=== PATIENT | male | born 1955 | race Caucasian/White ===

== ENCOUNTER 2024-04-01 14:26 | Outpatient (CLI) | payer MEDICARE, SELFPAY ==
--- NOTE | ~2024-04-01 | MR_ITS ---
EXAMINATION: MR shoulder RT wo con DATE: 04/01/2024 15:14 INDICATION: Glenohumeral arthritis TECHNIQUE: Magnetic resonance imaging (MRI) of the right shoulder was performed without intravenous c ontrast. Sequences included axial PD-weighted FS FSE, coronal oblique PD-weighted FS FSE, coronal obl ique T2-weighted FS FSE, sagittal PD-weighted FS FSE, and sagittal T1-weighted SE. COMPARISON: None. FINDINGS: Coracoacromial arch: The acromion undersurface is curved in morphology (type II). Moderate sized anterior subacromial spur at the insertion of the otherwise normal coracoacromial ligament. There are some foci of susceptibil ity artifact along the lateral margin of the acromion which could be related to either exposure for r eported rotator cuff repair or prior acromioplasty. Mild acromioclavicular osteoarthritis. Rotator cuff: There are foci of susceptibility artifact along the superior and middle facets of the greater tuberos ity consistent with prior rotator cuff repair. There is marked attenuation of the distal 3.5 cm the s upraspinatus and infraspinatus tendons with suggestion of retracted articular sided tendons at the tr ansition point midway between the level of the apex of the humeral head and the rim of the glenoid. T here does appear to be a small likely intact bursal side of the infraspinatus tendon. The supraspinat us tear appears to be full-thickness or largely full-thickness. There is mild subscapularis tendinopa thy which also appears to gradually attenuate distally consistent with a less severe partial thicknes s tear most likely along the patellar side of the tendon. The distal tendon passes between the narrow ed space between the posterior tip of the coracoid process and the superomedial margin of the lesser tuberosity with the osseous separation at this location measuring 3 mm. The teres minor tendon is nor mal. There is mild atrophy of the supraspinatus and infraspinatus tendons and mild to moderate fatty atrophy of the subscapularis tendon. Biceps tendon, glenoid labrum and glenohumeral cartilage: The long head biceps tendon is not visualized, likely torn and retracted below the level of the inter tubercular groove. No discrete labral tear identified although the anterior and inferior glenoid appe ars relatively diminutive suggesting chronic degeneration and the posterior labrum. Partially replace d by marginal osteophytes arising from the glenoid. No clearly defined labral tear identified. With n onuniform partial-thickness cartilage loss along the humeral head most prominent inferomedially. Appe ars to involve greater than 50% the cartilage thickness but without degenerative subchondral changes. Mild partial-thickness cartilage loss along the glenoid with cephalad predominance also without dege nerative subchondral changes. Fluid: Physiologic amount of fluid in the glenohumeral joint and biceps tendon sheath. No loose osteochondr al bodies. No abnormal fluid signal in the subacromial/subdeltoid bursa to suggest bursitis. Bones: There is some cephalad subluxation of the humeral head with respect to the glenoid with narrowing of the subacromial space with <1 mm separation between the cortex along the inferior margin of the acrom ion and the cartilage surfaces at the apex of the humeral head. IMPRESSION: 1. Postoperative change of prior rotator cuff tear likely of the supraspinatus and infraspinatus tend ons with recurrent severe articular sided tear of the infraspinatus tendon and complete full-thicknes s or largely full-thickness tear of the distal supraspinatus tendon. 2. Mild tendinopathy and mild partial thickness articular sided tear of the subscapularis tendon. 3. Mild to moderate glenohumeral osteoarthritis with mild cephalad subluxation of the humeral head wi th respect to the glenoid and acromion resulting from a recurrent rotator cuff tear. 4. Likely chronic degeneration of the glenoid labr
== END 2024-04-01 14:27 ==
LOC: GOSHIMG 14:27
PROVIDERS: PCP Internal Medicine Infectious Disease; Visit Provider Physician Assistant
DX: M19.011 Primary osteoarthritis, right shoulder (principal); M25.311 Other instability, right shoulder
CPT/HCPCS: 73221

== ENCOUNTER 2025-01-27 07:30 | Outpatient (CLI) | payer MEDICARE, SELFPAY ==
--- NOTE | ~2025-01-27 | PE_ITS ---
EXAMINATION: PET_PETPSMAST_PT DATE: 01/27/2025 09:44 INDICATION: Prostate cancer TECHNIQUE: 5.078 mCi of Illucix Ga-[id number]) was administered i.v. Low dose computed erika graphy (CT) images were acquired from the base of the brain to the base of the brain to the proximal thighs for attenuation correction and anatomic localization. Positron emission tomography (PET) image s were acquired in the same distribution beginning 82 minutes after injection. Images including fused PET/CT images were reconstructed in axial, coronal, and sagittal planes. Automated exposure control technique was employed. The dose-length product was 1340.30mGy-cm. COMPARISON: None FINDINGS: Head/neck: Typical pattern of symmetric physiologic increased activity in the lacrimal, parotid and submandibula r glands as well as along the mucosa of the nasal and oral cavities, pharynx and hypopharynx. 2.5 x 1 .6 cm nodule arising from the inferior left thyroid lobe extending into the superior mediastinum. No pathologically enlarged cervical lymphadenopathy or suspicious foci of increased uptake in the visual ized head or neck. Chest: Elevation of the left hemidiaphragm with adjacent left basilar atelectasis. Calcified right lower lob e nodule and calcified bilateral hilar lymph nodes consistent with old granulomatous disease. Heart s ize is normal. No pericardial or pleural effusion. No pathologically enlarged or PSMA avid thoracic l ymphadenopathy. Thoracic aorta is normal in caliber. Abdomen/pelvis/proximal thighs: Physiologic renal accumulation and excretion of activity in the kidneys, bladder and along portions o f ureters. 7 mm exophytic lesion at the lower pole the left kidney most likely a cyst but too small t o definitively characterize. Prostatomegaly measuring 5.5 x 5.2 cm. Approximately 2 cm region of prom inent increased PSMA uptake with maximal SUV of 15.5 at the right anterior inferior aspect of the pro state consistent with primary prostate cancer. Small bilateral fat-containing inguinal hernias with l ikely vasectomy clips along the bilateral spermatic cords at the base of the scrotum. Normal degree a nd slightly heterogenous pattern of increased uptake throughout the liver and spleen without radiolog ic correlate or dominant PSMA avid lesion. The gallbladder, pancreas and bilateral adrenal glands are normal. Moderate uptake scattered throughout the bowels with typical duodenal and proximal jejunal p redominance and without radiologic correlate, also likely physiologic. Normal appendix. No other abno rmal foci of increased uptake or pathologically enlarged lymphadenopathy in the abdomen, pelvis or pr oximal thighs. Musculoskeletal: Mild thoracolumbar levocurvature. Moderate to severe spondylosis in the cervical, thoracic and lumbar spine. No suspicious lytic, blastic or abnormally PSMA avid bone lesions. IMPRESSION: 1. Region of prominent increased activity at the right anterior inferior aspect of the enlarged prost ate consistent with primary prostate cancer. No lesion suspicious for metastatic disease. Reviewed, dictated and finalized at location A. IMPRESSION: 1. Region of prominent increased activity at the right anterior inferior aspect of the enlarged prostate consistent with primary prostate cancer. No lesion miller spicious for metastatic disease.
--- OUTSIDE RECORDS SUMMARY | 2025-01-27 07:34 | XMS_ITS | Encounter Summary ---
Author Organization [facility] Healthcare Address [address] [place] [address] Care Team Providers Care Foundation Stage Teacher Name Role Phone Moses Griffith MD Primary Care Provider [phone] Mona Fregoso DO Unavailable [phone] Reason for Referral * MRI/CAT/PET Scan (Routine) - Closed Specialty Diagnoses / Procedures Referred By Contac t Referred To Contact Radiology Diagnoses Elevated PSA Procedures MRI [place] [address] [place] [id number] Phone: tel: fax: [address] [phone] Referral ID Status Reason Start Date Expiration Date Visits Re quested Visits Authorized [id number] Closed 11/14/2024 05/13/2025 1 1 ER [employer] Encounter Details Date Type Department Care Team (Late st Contact Info) Description 10/30/2024 Community Orders [facility] [place] [address] [place] [id number] Elevated PSA (Primary Dx) Social History Tobacco Use Types Packs/Day Years Used Date Smoking Tobacco: Former Smokeless Tobacco: Never Alcohol Use Standard Drinks/Week Comments Not Currently 0 (1 standard drink = 0.6 oz pur e alcohol) [facility] Utilities Answer Date Recorded In the past 12 months has th e electric, gas, oil, or water company threatened to shut off services in your home? No 08/01/2024 Social Connection and Isolat ion Panel [NHANES] Answer Date Recorded In a typical week, how many times do you talk on the phone with family, friends, or neighbors? More than three times a week 08/01/2024 How often do you get togethe r with friends or relatives? Three times a week 08/01/2024 How often do you attend chur ch or mormonism services? Never 08/01/2024 Do you belong to any clubs o r organizations such as holiness groups, unions, fraternal or athletic groups, or school groups? Yes 08/01/2024 How often do you attend meet ings of the clubs or organizations you belong to? More than 4 times per year 08/01/2024 Are you , , di vorced, , never , or living with a partner? 08/01/2024 Overall Financial Resource Strain (CARDIA) Answe r Date Recorded How hard is it for you to pa y for the very basics like food, housing, medical care, and heating? Not hard at all 08/01/2024 PHQ-2 Answer Date Recorded PHQ-2 Total Score (If total score is 3 or more points, staff should administer the PHQ-9) 0 09/09/2024 Hunger Vital Sign Answer Date Recorded Within the past 12 months, y ou worried that your food would run out before you got the money to buy more. Never true 08/01/20 24 Within the past 12 months, t he food you bought just didn't last and you didn't have money to get more. Never true 08/01/2024 PRAPARE - Transportation Answer Date Re corded In the past 12 months, has l ack of transportation kept you from medical appointments or from getting medications? No 07/14 In the past 12 months, has l ack of transportation kept you from meetings, work, or from getting things needed for daily living? No 08/01/2024 Housing Stability Vital Sign Answer Tong e Recorded In the last 12 months, was t here a time when you were not able to pay the mortgage or rent on time? No 08/01/2024 In the past 12 months, how m any times have you moved where you were living? 0 08/01/2024 At any time in the past 12 m [facility], were you homeless or living in a penitentiary (including now)? No 08/01/2024 Personal Safety Answer Date Recorded Have you ever been in or are you currently in a harmful physical or emotional relationship or is someone making you feel afraid or unsafe? Denies 07/30/2024 Sex and Gender Information Value Date Recorded Sex Assigned at Not on file Legal Sex Male 1:06 AM [employer] Gender Identity Not on file Sexual Orientation Not on file documented as of this encounter Plan of Treatment Not on file documented as of this encounter Results * MRI PELVIS PROSTATE W WO CONTRAST (12/02/2024 1:20 PM [employer]) Anatomical Region Laterality Modality Body N/A Magnetic Resonan ce 12/02/2024 2:09 PM [employer] Impressions 12/02/2024 2:52 PM [employer] 1. Lesion in the right anterior transition zone at the apex is at high suspicion for malignancy with an overall PI-RADS score of 5. There is irregularity with a bulge along the anterior prostate at this site, potentially indicating extraprostatic extension (EPE grade of 2). 2. Additional 6 mm PI-RADS 3 lesion in the right lateral transition zone, as described above. Dictated by: Stepan Augustin MD The radiology attending physician has personally reviewed this study, and had reviewed and/or edited this written report and agrees with it. Electronically signed by: Miguel Angel Ricardo M.D. Narrative 12/02/2024 2:52 PM [employer] EXAMINATION: MAGNETIC RESONANCE IMAGING OF THE PELVIS WITHOUT AND WITH CONTRAST HISTORY: Elevated PSA of 7.5 TECHNIQUE: MR imaging of the prostate gland was performed with a torso phased array coil prior to and following administration of intravenous gadolinium. Protocol: Prostate 3T Contrast: gadoterate 20 mL COMPARISON: None available FINDINGS: Prostate volume: 68 cc The prostate transition zone is enlarged with benign prostatic hyperplasia. The prostate was assessed using the PI-RADS version 2.1 scoring system. The following lesions are of at least intermediate suspicion (PI-RADS 3 or greater): Lesion 1: Side: right Location: anterior Zone: transition zone Craniocaudal: apex Aiken images: series 9, image 21 Size: 1.9 mL; largest axial dimensions 2.2 x 1.5 cm Extraprostatic extension: - tumor contact length with prostate margin: 1.6 - margin bulge/irregularity: yes - rectoprostatic angle obliteration: no - neurovascular bundle asymmetry: no - gross extraprostatic extension: no - overall EPE grade: 2 ( both curvilinear contact length > 15 mm AND margin irregularity/bulge) T2WI score: 4 DWI score: 5 DCE: negative Overall PI-RADS v2.1 assessment: 5 Lesion 2: Side: right Location: lateral Zone: transition zone Craniocaudal: mid gland Aiken images: series 9, image 15 Size: 0.1 mL; largest axial dimensions 0.6 x 0.6 cm Extraprostatic extension: - tumor contact length with prostate margin: 0 - margin bulge/irregularity: no - rectoprostatic angle obliteration: no - neurovascular bundle asymmetry: no - gross extraprostatic extension: no - overall EPE grade: 0 (no suspicion for pathologic EPE) T2WI score: 2 DWI score: 4 DCE: negative Overall PI-RADS v2.1 assessment: 3 Staging Information: No enlarged lymph nodes are identified. No suspicious osseous lesions are identified. Other findings: The imaged bladder, bowel/rectum appear normal. Procedure Note Miguel Angel Ricardo MD - 12/02/2024 EXAMINATION: MAGNETIC RESONANCE IMAGING OF THE PELVIS WITHOUT AND WITH CONTRAST HISTORY: Elevated PSA of 7.5 TECHNIQUE: MR imaging of the prostate gland was performed with a torso phased array coil prior to and following administration of intravenous gadolinium. Protocol: Prostate 3T Contrast: gadoterate 20 mL COMPARISON: None available FINDINGS: Prostate volume: 68 cc The prostate transition zone is enlarged with benign prostatic hyperplasia. The prostate was assessed using the PI-RADS version 2.1 scoring system. The following lesions are of at least intermediate suspicion (PI-RADS 3 or greater): Lesion 1: Side: right Location: anterior Zone: transition zone Craniocaudal: apex Aiken images: series 9, image 21 Size: 1.9 mL; largest axial dimensions 2.2 x 1.5 cm Extraprostatic extension: - tumor contact length with prostate margin: 1.6 - margin bulge/irregularity: yes - rectoprostatic angle obliteration: no - neurovascular bundle asymmetry: no - gross extraprostatic extension: no - overall EPE grade: 2 ( both curvilinear contact length > 15 mm AND margin irregularity/bulge) T2WI score: 4 DWI score: 5 DCE: negative Overall PI-RADS v2.1 assessment: 5 Lesion 2: Side: right Location: lateral Zone: transition zone Craniocaudal: mid gland Aiken images: series 9, image 15 Size: 0.1 mL; largest axial dimensions 0.6 x 0.6 cm Extraprostatic extension: - tumor contact length with prostate margin: 0 - margin bulge/irregularity: no - rectoprostatic angle obliteration: no - neurovascular bundle asymmetry: no - gross extraprostatic extension: no - overall EPE grade: 0 (no suspicion for pathologic EPE) T2WI score: 2 DWI score: 4 DCE: negative Overall PI-RADS v2.1 assessment: 3 Staging Information: No enlarged lymph nodes are identified. No suspicious osseous lesions are identified. Other findings: The imaged bladder, bowel/rectum appear normal. IMPRESSION: 1. Lesion in the right anterior transition zone at the apex is at high suspicion for malignancy with an overall PI-RADS score of 5. There is irregularity with a bulge along the anterior prostate at this site, potentially indicating extraprostatic extension (EPE grade of 2). 2. Additional 6 mm PI-RADS 3 lesion in the right lateral transition zone, as described above. Dictated by: Stepan Augustin MD The radiology attending physician has personally reviewed this study, and had reviewed and/or edited this written report and agrees with it. Electronically signed by: Miguel Angel Ricardo M.D. [facility] Danie Ramirez MD IM MRI PROCEDURES Final Resul t documented in this encounter Visit Diagnoses Diagnosis Elevated PSA- Primary Elevated prostate specific antigen (PSA) Elevated PSA Elevated prostate specific antigen (PSA) documented in this encounter Care Teams Foundation Stage Teacher Relationship Specialty Start Date End Date Moses Griffith MD [address] [place] [address] PCP - General 08/02/09 Mona Fregoso DO [address] [place] [address] [address] Consulting Physician Otolaryngology 08/16/20 documented as of this encounter
--- OUTSIDE RECORDS SUMMARY | 2025-01-27 07:34 | XMS_ITS | Referral Summary ---
Author Organization [facility] Address [address] [place] [address] Care Team Providers Care Garage Mechanic Name Role Phone Gladis Moses Brown MD Primary Care Provider [phone] Mona Fregoso DO Unavailable [phone] Encounters Date Type Department Care Team Description 01/14/2025 10:05 AM RAISED PRINTER - 01/14/2025 11:05 AM RAISED PRINTER Surgery [facility] Operating Room [address] [place] [address] Fei Ramirez MD URONAV GUIDED PROSTATE TRANSRECTAL ULTRASOUND FUSION GUIDED PROSTATE BIOPSY 01/14/2025 10:56 AM RAISED PRINTER Anesthesia Event [facility] Operating Room [address] [place] [address] Lauren Topete MD [place], Emenike Adolphus Jr., MD 01/14/2025 8:25 AM RAISED PRINTER - 01/14/2025 1:25 PM RAISED PRINTER Hospital Encounter [facility] Operating Room [address] [place] [address] Fei Ramirez MD Elevated PSA Discharge Disposition: Discharge to home or self care 12/03/2024 Plan of Care Documentation [facility] [place] [address] 12/03/2024 1:00 PM RAISED PRINTER Therapy [facility] [place] [address] Meiser, Deandre Edward, PT Right knee pain, unspecified chronicity 12/02/2024 11:30 AM RAISED PRINTER - 12/02/2024 11:59 PM RAISED PRINTER Hospital Encounter [facility] [address] [place], [place] [id number] Elevated PSA Discharge Disposition: Discharge to home or self care 11/20/2024 7:51 AM RAISED PRINTER - 11/20/2024 11:59 PM RAISED PRINTER Hospital Encounter [facility] [address] [place] [address] [address] [place] [address] Discharge Disposition: Discharge to home or self care 11/20/2024 11:00 AM RAISED PRINTER Office Visit [facility] [address] [place] [address] [address] [address] Juan Pablo Grijalva MD Right knee pain, unspecified chronicity (Primary Dx); Knee stiffness, right; Hip abductor tendinitis, right 11/07/2024 7:41 AM RAISED PRINTER - 11/07/2024 11:59 PM RAISED PRINTER Hospital Encounter [facility] [address] [place] [address] [address] [place] [address] Discharge Disposition: Discharge to home or self care 11/07/2024 2:45 PM RAISED PRINTER Office Visit [facility] [address] [place] [address] [address] [place] [address] Glenny Johnson PA Trochanteric bursitis of right hip (Primary Dx) 10/30/2024 Community Orders [facility] EpicCare Link Fei Ramirez MD Elevated PSA (Primary Dx) from Last 3 Months Allergies Active Allergy Reactions Criticality Noted Date Comments Opioids - Morphine Analogues Hives Medium 10/11/2016 Other Rash Medium 10/09/2023 Narcotics Oxycodone Rash Medium 07/08/2021 Penicillins Other (See comments),Unknown Low 06/16/2021 as child Medications flecainide (TAMBOCOR) 50 mg tablet Take 1 tablet (50 mg total) by mouth 2 (two) times a day 60 tablet 4 025 Active metoprolol XL (TOPROL-XL) 50 mg extended release tablet Take 1 tablet (50 mg total) by mouth daily 30 tablet 11 4 025 Active dilTIAZem XR (CARDIZEM CD,DILACOR XR) 240 mg 24 hr capsule Take 1 capsule (240 mg total) by mouth daily 90 capsule 3 4 025 Active betamethasone valerate (VALISONE) 0.1 % cream Apply topically 2 (two) times a day as needed for irritation or rash 45 g 4 4 Active apixaban (ELIQUIS) 5 mg tabletIndication s:atrial fibrillation Take 1 tablet (5 mg total) by mouth 2 (two) times a day 14 tablet 4 Active vibegron (Gemtesa) 75 mg tablet Take 75 mg by mouth every morning Active valACYclovir (VALTREX) 1 gram tablet Take 1 tablet (1,000 mg total) by mouth daily Active eizei-0-agw-epa- dpa-fish oil 1,050-1,200 mg capsule Take 2 capsules by mouth every morning Active cholecalciferol, vitD3,/vit K2 (VITAMIN D3-VITAMIN K2 ORAL) Take 1 tablet by mouth daily Vitamin D3 125mcg Vitamin K1 50mcg Active ciprofloxacin (CIPRO) 500 mg tablet Take 1 tablet (500 mg total) by mouth 2 (two) times a day 6 tablet 5 Active oxyBUTYnin XL (DITROPAN XL) 15 mg 24 hr tablet Take 1 tablet (15 mg total) by mouth daily 90 tablet 4 025 Discontin ued(Thera py completed ) Active Problems Problem Noted Date Diagnosed Date Trochanteric bursitis of right hip 11/07/2024 Routine physical examination 09/09/2024 Assessment & Plan (09/10/2024 5:56 PM CDT): Immunizations were reviewed Meds were reviewed today A fib probable paroxysmal discussed the importanace of restarting doac also discussed coumadin pt has an apptto see dr moore for possible ablatrion rate controlled in witrh beta johnathon/ rhythm control with flecainide . Elevated psa / oab rectal exam is nl / will fax the psa results to dr sly lagunas continue oxybutynin for his Oab Colonscopy is uptodate Eye exam and dental uptodate Essential HTN goal bp is 130/80 or under Atrial fibrillation with RVR 07/30/2024 PHN (postherpetic neuralgia) 03/03/2024 Assessment & Plan (03/03/2024 9:00 AM CDT): HE IS DOING OK DISCUSSED THERE ARE MEDS AVAILABLE BUT HIS SYMPTOMS ARE NOT BAD ENOUGH DISCUSSED SHINGRIX VACCINE IN SIX MONTH OAB (overactive bladder) 03/03/2024 Assessment & Plan (03/03/2024 9:01 AM CDT): HE IS DOING WITHOUT ANY SYMPTOMS HE IS NOT ON ANY MEDS AT THIS TIME Elevated PSA 03/03/2024 Assessment & Plan (03/03/2024 9:02 AM CDT): HE IS RELATIVELY ASYPTOMATIC WILL GO AHEAD AND FAX PSA TO HIS UROLOGIST Herpes zoster without complication 09/28/2023 Assessment & Plan (09/28/2023 11:14 AM RAISED PRINTER): Patient presents with facial rash consistent with shingles, located on R upper brow and forehead area with swelling to right eye. Patient reports he has seen the health education teacher and shingles is not in eye. Notes that he goes back to eye doctor on 10/18. Plan: Depo-medrol 80mg IM in office today Valtrex 1 gram tid x 10 days Prednisone 20mg daily for 5 days Allergic drug rash due to narcotic 09/28/2023 Assessment & Plan (09/28/2023 11:33 AM RAISED PRINTER): Patient notes a generalized itchy rash. Says this has been present a couple days after recent surgery September 07. He was given Fentanyl which he says he is allergic to, along with other narcotics. Legs were examined during appt today, PE as documented above. Depo-medrol 80mg IM in office today and script for triamcinolone sent to pharmacy. History of colon polyps 03/02/2023 SDH (subdural hematoma) 06/16/2021 KATT (obstructive sleep apnea) 06/13/2021 Assessment & Plan (06/13/2021 9:59 AM CDT): Referral to Sleep Medicine Neck pain 06/13/2021 Assessment & Plan (06/13/2021 10:01 AM CDT): Start Cefdinir 300 mg twice daily with a meal Ibuprofen 400 mg with tylenol 500 mg three times daily with a meal Warm compresses to the Neck Continue sinus Rinses twice daily, definitely use sinus rinse after hunt water exposure Continue Flonase twice daily for the next three weeks Dizziness and giddiness 06/13/2021 Assessment & Plan (06/13/2021 10:01 AM CDT): Start Cefdinir 300 mg twice daily with a meal Ibuprofen 400 mg with tylenol 500 mg three times daily with a meal Warm compresses to the Neck Continue sinus Rinses twice daily, definitely use sinus rinse after hunt water exposure Continue Flonase twice daily for the next three weeks Acute recurrent maxillary sinusitis 04/21/2021 Assessment & Plan (06/13/2021 10:01 AM CDT): Start Cefdinir 300 mg twice daily with a meal Ibuprofen 400 mg with tylenol 500 mg three times daily with a meal Warm compresses to the Neck Continue sinus Rinses twice daily, definitely use sinus rinse after hunt water exposure Continue Flonase twice daily for the next three weeks Assessment & Plan (04/21/2021 4:23 PM CDT): Cefdinir twice daily with a meal for 21 days Nasal saline spray (Simply saline, [place] Remedies, [place], [place]) 2 second sprays or 2 squeezes into each nostril while looking down over the sink, do not need to sniff in or Sinus rinse daily Flonase 2 sprays into each nostril while looking down over the sink, do not sniff in or blow nose after use for at least 30 minutes daily Follow up in 4 weeks If sinus infection resolved with refer to sleep medicine for Sleep study Allergic rhinitis 11/01/2020 Assessment & Plan (08/02/2021 9:11 AM CDT): Continue Cefdinir for 14 more days Start Cetirizine 10 mg daily without the Decongestant Continue Sinus Rinse Increase Flonase to twice daily Assessment & Plan (11/01/2020 4:12 PM RAISED PRINTER): Sinus Rinse followed by Flonase 2 sprays into each nostril while looking down over the sink, do not sniff in or blow nose after use for at least 30 minutes daily Blood allergy testing - call with results Call for follow up if nasal congestion increases Nasal polyposis 07/29/2020 Overview (07/29/2020): Added automatically from request for surgery [id number] Assessment & Plan (10/11/2020 4:17 PM RAISED PRINTER): Cefdinir with a meal Medrol dose pack Pepcid while on steroids Sinus rinse followed by Flonase twice daily 08/26/2020 PROCEDURE PERFORMED: Endoscopic bilateral Total Ethmoidectomies Endoscopic bilateral Maxillary Anstrostomies Endoscopic bilateral Frontal Sinusotomies with tissue removal Endoscopic bilateral Sphenoidotomies with tissue removal Endoscopic bilateral Mini Propel implant placement in the frontal recesses Stealth Image guidance utilized Assessment & Plan (09/02/2020 3:43 PM CDT): Sinus Rinse twice daily Finish Antibiotics Follow up as scheduled Chronic sinusitis 07/29/2020 Overview (07/29/2020): Added automatically from request for surgery [id number] Chronic maxillary sinusitis 05/13/2020 Assessment & Plan (12/20/2022 10:15 AM RAISED PRINTER): Sinus Rinse Flonase 1 spray and Astelin (azelastine) 1 sprays into each nostril while looking down over the sink, do not sniff in or blow nose after use for at least 30 minutes twice daily Cefdinir twice daily with a meal for 10 days, based on culture results will either continue current antibiotic or change Follow up in 6 weeks for recheck Assessment & Plan (08/02/2021 9:11 AM CDT): Continue Cefdinir for 14 more days Start Cetirizine 10 mg daily without the Decongestant Continue Sinus Rinse Increase Flonase to twice daily Assessment & Plan (11/01/2020 4:12 PM RAISED PRINTER): 08/26/2020 PROCEDURE PERFORMED: Endoscopic bilateral Total Ethmoidectomies Endoscopic bilateral Maxillary Anstrostomies Endoscopic bilateral Frontal Sinusotomies with tissue removal Endoscopic bilateral Sphenoidotomies with tissue removal Endoscopic bilateral Mini Propel implant placement in the frontal recesses Stealth Image guidance utilized Sinus Rinse followed by Flonase 2 sprays into each nostril while looking down over the sink, do not sniff in or blow nose after use for at least 30 minutes daily Blood allergy testing - call with results Call for follow up if nasal congestion increases Assessment & Plan (10/11/2020 4:17 PM RAISED PRINTER): Cefdinir with a meal Medrol dose pack Pepcid while on steroids Sinus rinse followed by Flonase twice daily Assessment & Plan (09/10/2020 1:41 PM CDT): Continue sinus rinses twice daily Restart Flonase 2 sprays into each nostril while looking down over the sink, do not sniff in or blow nose after use for at least 30 minutes twice daily May blow nose very gently Assessment & Plan (07/26/2020 1:35 PM CDT): Endoscopic bilateral Frontal sinusotomy with tissue removal Endoscopic bilateral nasal polypectomies Endoscopic bilateral Total Ethmoidectomy Endoscopic bilateral Maxillary Antrostomy Endoscopic bilateral Sphenoidotomy with tissue removal Stealth Image guidance Possible Propel placement Continue Sinus Rinse and Flonase Take Cefdinir with a meal Assessment & Plan (06/25/2020 11:50 AM CDT): Neti-pot twice daily Flonase 2 sprays into each nostril while looking down over the sink, do not sniff in or blow nose after use for at least 30 minutes daily Follow up in 3-[address] Sinus right before follow up Doxycycline twice daily, call if refill needed Assessment & Plan (05/13/2020 3:34 PM CDT): Cefdinir twice daily for 21 days Probiotic at a different meal - 4 hour window in between Neti-pot and Flonase 2 sprays into each nostril while looking down over the sink, do not sniff in or blow nose after use for at least 30 minutes twice daily Follow up if no improvement in one month Dysfunction of both eustachian tubes 05/13/2020 Assessment & Plan (05/13/2020 3:51 PM CDT): Referral for discussion regarding Eustachian Tube dilation Routine physical examination 12/03/2017 Rib pain on left side 10/19/2017 BPH (benign prostatic hyperplasia) 05/23/2017 Hemoptysis 12/23/2014 Overview (02/16/2017): Hemoptysis Insomnia 03/28/2014 Overview (02/15/2017): Insomnia Hypertension 03/28/2014 Overview (02/15/2017): Hypertension Hypertriglyceridemia 03/28/2014 Overview (02/16/2017): Hypertriglyceridemia Obstructive sleep apnea syndrome 03/28/2014 Overview (02/16/2017): KATT (obstructive sleep apnea) Hyperlipidemia 03/28/2014 Overview (02/16/2017): Hyperlipidemia Atrial fibrillation 03/28/2014 Overview (02/16/2017): Atrial fibrillation Adiposity 03/28/2014 Overview (02/16/2017): Obesity Immunizations Immunization Administration Dates Next Due DTP 07/22/2007 Influenza, Quadrivalent, Spl it, Intramuscular 08/10/2016 Influenza, Split 07/28/2013,07/22/2012 Influenza, Unspecified 09/09/2024(Deferr ed: Patient Refused),09/03/2023(Deferred: Patient Refused),08/12/2016 [place] ([employer]) SARS-CoV-2 Vaccination 01/17/2021 Tdap 04/16/2024 Social History Tobacco Use Types Packs/Day Years Used Date Smoking Tobacco: Former Cigarettes Smokeless Tobacco: Never Tobacco Cessation:Counseling Given: Not Answered Alcohol Use Standard Drinks/Week Comments Not Currently 0 (1 standard drink = 0.6 oz pur e alcohol) [facility] Utilities Answer Date Recorded In the past [...] often do you attend chur ch or christianity services? Never 08/01/2024 Do you belong to any clubs o r organizations such as oriental orthodox groups, unions, fraternal or athletic groups, or school groups? Yes 08/01/2024 How often do you attend meet ings of the clubs or organizations you belong to? More than 4 times per year 08/01/2024 Are you , , di vorced, , never , or living with a partner? 08/01/2024 AUDIT-C Answer Date Recorded Q1: How often do you have a drink containing alc ohol? 2-4 times a month 01/14/2025 Q2: How many drinks containi ng alcohol do you have on a typical day when you are drinking? 1 or 2 01/14/2025 Q3: How often do you have si x or more drinks on one occasion? Never 01/14/2025 Overall Financial Resource Strain (CARDIA) Answe r [...] any time in the past 12 m [facility], were you homeless or living in a care home (including now)? No 08/01/2024 Personal Safety Answer Date Recorded Have you ever been in or are you currently in a harmful physical or emotional relationship or is someone making you feel afraid or unsafe? Denies 01/14/2025 Sex and Gender Information Value Date Recorded Sex Assigned at Not on file Legal Sex Male 1:06 AM RAISED PRINTER Gender Identity Not on file Sexual Orientation Not on file Last Filed Vital Signs Vital Sign Reading Time Taken Comments Blood Pressure 126/83 01/14/2025 12:45 PM RAISED PRINTER Pulse 48 01/14/2025 12:45 PM RAISED PRINTER Temperature 36.1 C (96.9 F) 01/14/2025 12:45 PM RAISED PRINTER Respiratory Rate 15 01/14/2025 12:4 5 PM RAISED PRINTER Oxygen Saturation 100% 01/14/2025 12: 45 PM RAISED PRINTER Inhaled Oxygen Concentration - - Weight 117.9 kg (259 lb 14.8 oz) 01/14/2025 8:43 AM RAISED PRINTER Height 180.3 cm (5' 11 ) 01/14/2025 8:43 AM RAISED PRINTER Body Mass Index 36.25 01/14/2025 8:43 AM RAISED PRINTER Plan of Treatment Not on file Medical Devices Implanted Type Area Patient Flow Coordinator Device Identifier Shelf Expiration Date Model / Serial / Lot Intersect Ent [id number] Propel 4mm 16mm Steroid Release Zip Tie 370 Mcg Mini Implant - [id number] Implanted:Qty: 1 on 08/26/2020 by Mona Fregoso DO at [facility] Left: Sinus Intersect Ent [id number] 04/01/2021 [id number] / / [id number] Intersect Ent [id number] Propel 4mm 16mm Steroid Release Zip Tie 370 Mcg Mini Implant - [id number] Implanted:Qty: 1 on 08/26/2020 by Mona Fregoso DO at [facility] Right: Sinus Intersect Ent [id number] 04/01/2021 [id number] / / [id number] Procedures Procedure Name Priority Date/Time Associated Diagnosis Comments SURGICAL PATHOLOGY Routine 01/14/2025 1: 30 PM RAISED PRINTER Elevated PSA URONAV GUIDED PROSTATE BIOPSY 01/14/2025 10:56 AM RAISED PRINTER Elevated PSA Special Needs [facility] CONF# [id number]< MRI PELVIS PROSTATE W WO CONTRAST Schedule Routine, Read Routine (OP Routine) 12/02/2024 1:20 PM RAISED PRINTER Elevated PSA LIPID PANEL Routine 12/02/2024 8:00 AM RAISED PRINTER Routine physical examination Hypertension, unspecified type PSA SCREEN Routine 12/02/2024 8:00 AM RAISED PRINTER Prostate cancer screening COMPREHENSIVE METABOLIC PANEL Routine 12/02/2024 8:00 AM RAISED PRINTER Routine physical examination Hypertension, unspecified type CBC WITH AUTO DIFFERENTIAL Routine 12/02/2024 8:00 AM RAISED PRINTER Routine physical examination Hypertension, unspecified type XR KNEE RIGHT 3 VIEWS Schedule Routine, Read Routine (OP Routine) 11/20/2024 10:32 AM RAISED PRINTER Right knee pain, unspecified chronicity DC ARTHROCENTESIS ASPIR&/INJ MAJOR JT/BURSA W/O US Routine 11/07/2024 2:45 PM RAISED PRINTER Trochanteric bursitis of right hip XR HIP RIGHT 2 OR 3 VIEWS Schedule Routine, Read Routine (OP Routine) 11/07/2024 2:41 PM RAISED PRINTER Trochanteric bursitis of right hip COLONOSCOPY 05/02/2023 8:30 AM CDT from Last 3 Months or Most Recently Relevant to Health Maintenance Results * Surgical pathology (01/14/2025 1:30 PM RAISED PRINTER) Tissue (Prostate, Needle Biopsy) 01/14/2025 10:48 AM RAISED PRINTER Tissue (Prostate, Needle Biopsy) 01/14/2025 10:48 AM RAISED PRINTER Tissue (Prostate, Needle Biopsy) 01/14/2025 10:48 AM RAISED PRINTER Tissue (Prostate, Needle Biopsy) 01/14/2025 10:48 AM RAISED PRINTER Tissue (Prostate, Needle Biopsy) 01/14/2025 10:48 AM RAISED PRINTER Tissue (Prostate, Needle Biopsy) 01/14/2025 10:48 AM RAISED PRINTER Tissue (Prostate, Needle Biopsy) 01/14/2025 10:48 AM RAISED PRINTER Tissue (Prostate, Needle Biopsy) 01/14/2025 10:48 AM RAISED PRINTER Tissue (Prostate, Needle Biopsy) 01/14/2025 10:48 AM RAISED PRINTER Tissue (Prostate, Needle Biopsy) 01/14/2025 10:48 AM RAISED PRINTER Tissue (Prostate, Needle Biopsy) 01/14/2025 10:48 AM RAISED PRINTER Tissue (Prostate, Needle Biopsy) 01/14/2025 10:48 AM RAISED PRINTER Tissue (Prostate, Needle Biopsy) 01/14/2025 10:51 AM RAISED PRINTER Tissue (Prostate, Needle Biopsy) 01/14/2025 10:51 AM RAISED PRINTER Narrative PATHOLOGY [facility] ([facility]) - 01/16/2025 1:16 PM RAISED PRINTER EPIC results best viewed via link to PDF [facility] Department of Pathology [address] [place] [id number] Note to Patients: This report may contain a detailed description of human tissue sent by a health care provider to the laboratory for pathologic evaluation. The content of this report is essential for diagnosis and may provide important critical findings. This information may be unfamiliar to patients to review without a medical professional present. It is advised that the patient review this report in the presence of a health care provider who can answer questions and explain the details. Final Report Patient Name: YAW FELIX. Address: [address] [place] [address] [place] [address] Gender: M : 1955 (Age: 69) Service: Surgery Location: [facility] Hospital #: [id number] Patient Type: [facility] Taken: 01/14/2025 Received: 01/14/2025 Accessioned: 01/14/2025 Reported: 01/16/2025 Physician(s):Fei Caraballo MD Diagnosis: M. 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 Prostate, right lateral base, needle biopsy- Benign prostate tissue B. Prostate, right medial base, needle biopsy- No tissue present in jar for evaluation C. Prostate, right lateral mid, needle biopsy- Benign prostate tissue D. Prostate, right medial mid, needle biopsy- Benign prostate tissue E. Prostate, right lateral apex, needle biopsy- Benign prostate tissue F. Prostate, right medial apex, needle biopsy- Benign prostate tissue G. Prostate, left lateral base, needle biopsy- Benign prostate tissue H. Prostate, left medial base, needle biopsy- Benign prostate tissue I. Prostate, left lateral mid, needle biopsy- Benign prostate tissue J. Prostate, left medial mid, needle biopsy- Benign prostate tissue K. Prostate, left lateral apex, needle biopsy- Benign prostate tissue L. Prostate, left medial apex, needle biopsy- Benign prostate tissue N. Prostate, ANGEL #2- Benign prostate tissue Steph Pinto M.D. Report Electronically Reviewed and Signed Out By Steph Pinto M.D. 01/16/2025 13:16:00 Specimen(s) Received: A: Right lateral Base B: Right medial Base C: Right lateral Mid D: Right medial Mid E: Right lateral Fitzpatrick F: Right medial Fitzpatrick G: Left lateral Base H: Left medial Base I: Left lateral Mid J: Left medial Mid K: Left lateral Fitzpatrick L: Left medial Fitzpatrick M: ANGEL #1 N: ANGEL #2 Microscopic Description: Microscopic examination corroborates the diagnosis. PIN4 IHC cocktail with appropriate control also reviewed was performed on all blocks to facilitate this diagnosis. Clinical History: Elevated PSA [R97.20] Uronav guided prostate transrectal ultrasound fusion guided prostate biopsy Gross Description: The specimen is submitted in fourteen containers labeled YAW FELIX . A. The first container is labeled right lateral base . It is 1 core of truong tissue measuring 6 mm. Entirely in A. B. The second container is labeled right medial base . It is a formalin filled jar containing a Telfa pad however no tissue is seen grossly. C. The third container is labeled right lateral mid . It is 1 core of truong tissue measuring 1.5 cm. Entirely in C. D. The fourth container is labeled right medial mid . It is 1 core of truong tissue measuring 1.6 cm. Entirely in D. E. The fifth container is labeled right lateral apex . It is 1 core of truong tissue measuring 1.5 cm. Entirely in E. F. The sixth container is labeled right medial apex . It is 1 core of truong tissue measuring 1.2 cm. Entirely in F. G. The seventh container is labeled left lateral base . It is 1 core of truong tissue measuring 1.7 cm. Entirely in G. H. The eighth container is labeled left medial base . It is 1 core of truong tissue measuring 1.6 cm. Entirely in H. I. The ninth container is labeled left lateral mid . It is 1 core of truong tissue measuring 1.4 cm. Entirely in I. J. The tenth container is labeled left medial mid . It is 1 core of truong tissue measuring 1.9 cm. Entirely in J. K. The eleventh container is labeled left lateral apex . It is 1 core of truong tissue measuring 1.3 cm. Entirely in K. L. The twelfth container is labeled left medial apex . It is 2 cores of truong tissue between 0.3 and 1.0 cm. Entirely in L. M. The thirteenth container is labeled RO I #1 . It is 4 cores of truong tissue between 0.6 and 1.2 cm. Entirely in M. N. The fourteenth container is labeled RO #2 . It is 4 cores of truong tissue between 0.7 and 1.0 cm. Entirely in N. T.A. Joy Cerrato., P.A./Steph Pinto M.D. REPORT IMAGES AND SCANNED DOCUMENTS, IF INCLUDED, ONLY VIEWABLE IN PDF VERSION OF REPORT The performance characteristics of some immunohistochemical stains, fluorescence in-situ hybridization tests and immunophenotyping by flow cytometry cited in this report (if any) were determined by the Surgical Pathology Department at [facility] as part of an ongoing quality systems manager program and in compliance with federally mandated regulations drawn from the Clinical Laboratory Improvement Act of 1988 (CLIA '88). Some of these tests rely on the use of analyte specific reagents and are subject to specific labeling requirements by the US Food and Drug Administration. Such diagnostic tests may only be performed in a facility that is certified by the Department of Health and Human Services as a high complexity laboratory under CLIA '88. The FDA has determined that such clearance or approval is not necessary. This test is used for clinical purposes. It should not be regarded as investigational or for research. Nevertheless, federal rules concerning the medical use of analyte specific reagents require that the following disclaimer be attached to the report: This test was developed and its performance characteristics determined by the Surgical Pathology Department [facility]. It has not been cleared or approved by the U. S. Food and Drug Administration. Note for decalcified specimens: This assay has not been validated on decalcified tissues. Results should be interpreted with caution given the possibility of false negativity on decalcified specimens Fei Caraballo MD LAB PATHOLOGY ORDERABLES Final Result PATHOLOGY ON LICENSE OF [facility] ([address] [address] * MRI PELVIS PROSTATE W WO CONTRAST (12/02/2024 1:20 PM RAISED PRINTER) Anatomical Region Laterality Modality Body N/A Magnetic Resonan ce 12/02/2024 2:09 PM RAISED PRINTER Impressions 12/02/2024 2:52 PM RAISED PRINTER 1. Lesion in the right anterior transition [...] Angel Ricardo M.D. Narrative 12/02/2024 2:52 PM RAISED PRINTER EXAMINATION: MAGNETIC RESONANCE IMAGING OF THE PELVIS [...] Electronically signed by: Miguel Angel Ricardo M.D. us Fei Caraballo MD IMG MRI PROCEDURES Final Resul t * (ABNORMAL) PSA screen (12/02/2024 8:00 AM RAISED PRINTER) PSA 6.37(H) < OR = 4.00 ng/mL [facility] Comment: The total PSA value from this assay system is standardized against the WHO standard. The test result will be approximately 20% lower when compared to the equimolar-standardized total PSA ([place]). Comparison of serial PSA results should be interpreted with this fact in mind. This test was performed using the Siemens chemiluminescent method. Values obtained from different assay methods cannot be used interchangeably. PSA levels, regardless of value, should not be interpreted as absolute evidence of the presence or absence of disease. Blood 12/02/2024 8:00 AM RAISED PRINTER 12/02/2024 8:00 AM RAISED PRINTER Narrative [facility] - 12/03/2024 3:15 AM RAISED PRINTER FASTING:YES FASTING: YES Moses Griffith MD LAB BLOOD ORDERABLES Final Result [facility] [address] [place] [address] * (ABNORMAL) CBC with auto differential (12/02/2024 8:00 AM RAISED PRINTER) Pathologist [facility] [place] WBC 6.7 3.8 - 10.8 Thousand/u L [facility] RBC, POC 5.84(H) 4.20 - 5.80 Million/uL [facility] Hgb 17.1 13.2 - 17.1 g/dL [facility] Hct 50.4(H) 38.5 - 50.0 % [facility] MCV 86.3 80.0 - 100.0 fL [facility] MCH 29.3 27.0 - 33.0 pg [facility] MCHC 33.9 32.0 - 36.0 g/dL [facility] Comment: For adults, a slight decrease in the calculated MCHC value (in the range of 30 to 32 g/dL) is most likely not clinically significant; however, it should be interpreted with caution in correlation with other red cell parameters and the patient's clinical condition. Rdw 13.2 11.0 - 15.0 % [facility] Platelets 223 140 - 400 Thousand/u L [facility] MPV 9.2 7.5 - 12.5 fL [facility] Neutrophils, abs 3,839 1,500 - 7,800 cells/uL [facility] Lymphocytes, abs 2,050 850 - 3,900 cells/uL [facility] Monocyte abs 616 200 - 950 cells/uL [facility] Eosinophils, abs 141 15 - 500 cells/uL [facility] Basophils, abs 54 0 - 200 cells/uL [facility] Neutrophils 57.3 % [facility] Lymphocyte pct 30.6 % [facility] Monocytes 9.2 % [facility] Eosinophils 2.1 % [facility] Basophils 0.8 % [facility] Blood 12/02/2024 8:00 AM RAISED PRINTER 12/02/2024 8:00 AM RAISED PRINTER Narrative [facility] - 12/03/2024 3:15 AM RAISED PRINTER FASTING:YES FASTING: YES Moses Griffith MD LAB BLOOD ORDERABLES Final Result [facility] [address] [place] [address] * (ABNORMAL) Lipid panel (12/02/2024 8:00 AM RAISED PRINTER) [facility] Cholesterol 247(H) <200 mg/dL [facility] HDL 44 > OR = 40 mg/dL [facility] Triglycerides 218(H) <150 mg/dL [facility] Comment: If a non-fasting specimen was collected, consider repeat triglyceride testing on a fasting specimen if clinically indicated. Thomas et al. J. of Clin. Lipidol. 2015;9:129-169. LDL 164(H) mg/dL (calc) [facility] Comment: Reference range: <100 Desirable range <100 mg/dL for primary prevention; <70 mg/dL for patients with CHD or diabetic patients with > or = 2 CHD risk factors. LDL-C is now calculated using the Lonnie calculation, which is a validated novel method providing better accuracy than the Friedewald equation in the estimation of LDL-C. Cristian ALSTON et al. NITISH. 2013;310(19): 1595-3550 (http://education.Close.io/faq/RCI071) Chol/HDL ratio 5.6(H) <5.0 (calc) [facility] Non-HDL, (LDL+VLDL) 203(H) <130 mg/dL (calc) [facility] Comment: For patients with diabetes plus 1 major ASCVD risk factor, treating to a non-HDL-C goal of <100 mg/dL (LDL-C of <70 mg/dL) is considered a therapeutic option. Blood 12/02/2024 8:00 AM RAISED PRINTER 12/02/2024 8:00 AM RAISED PRINTER Narrative [facility] - 12/03/2024 3:15 AM RAISED PRINTER FASTING:YES FASTING: YES us Moses Griffith MD LAB BLOOD ORDERABLES Final Result [facility] [address] [facility] [place] [address] * Comprehensive metabolic panel (12/02/2024 8:00 AM RAISED PRINTER) [facility] Glucose 90 65 - 99 mg/dL [facility] Comment: Fasting reference interval BUN 18 7 - 25 mg/dL [facility] Creatinine 1.01 0.70 - 1.35 mg/dL [facility] eGFR 82 > OR = 60 mL/min/1.7 3m2 [facility] BUN/creat ratio SEE NOTE: 6 (calc) [facility] Comment: Not Reported: BUN and Creatinine are within reference range. Sodium 138 135 - 146 mmol/L [facility] Potassium, pl 4.1 3.5 - 5.3 mmol/L [facility] Chloride 104 98 - 110 mmol/L [facility] CO2 27 20 - 32 mmol/L [facility] Calcium 9.2 8.6 - 10.3 mg/dL [facility] Protein, sr 6.9 6.1 - 8.1 g/dL [facility] Albumin 4.6 3.6 - 5.1 g/dL [facility] GLOBULIN 2.3 1.9 - 3.7 g/dL (calc) [facility] Alb/glob ratio 2.0 1.0 - 2.5 (calc) [facility] Bilirubin, total 1.2 0.2 - 1.2 mg/dL [facility] Alk phos 68 35 - 144 U/L [facility] AST 15 10 - 35 U/L [facility] ALT (SGPT) 12 9 - 46 U/L [facility] Blood 12/02/2024 8:00 AM RAISED PRINTER 12/02/2024 8:00 AM RAISED PRINTER Narrative [facility] - 12/03/2024 3:15 AM RAISED PRINTER FASTING:YES FASTING: YES us Moses Griffith MD LAB BLOOD ORDERABLES Final Result [facility] [address] [place] [address] * XR Knee Right 3 Views (11/20/2024 10:32 AM RAISED PRINTER) Anatomical Region Laterality Modality Lower Extremities, Knee Right Digital Radiography Narrative 12/05/2024 10:26 AM RAISED PRINTER Three component, Press-Fit, cruciate retaining, total knee arthroplasty in appropriate position with no gross abnormalities and no evidence of loosening. us Juan Pablo Grijalva MD IMG XR PROCEDURES Final Result * DC ARTHROCENTESIS ASPIR&/INJ MAJOR JT/BURSA W/O US (11/07/2024 2:45 PM RAISED PRINTER) Narrative Juan Pablo Grijalva MD - 11/07/2024 2:45 PM RAISED PRINTER Glenny Johnson PA 11/07/2024 3:18 PM Greater trochanteric bursa injection Performed by: Glenny Johnson PA Authorized by: Glenny Johnson PA Greater Trochanteric Bursa Injection: Consent Given by: Patient Site marked: the procedure site was marked Timeout: prior to procedure the correct patient, procedure, and site was verified Verbal consent obtained?: Yes Prior to the start of the procedure, verbal verification by the procedure participant(s) confirmed (as applicable): corect patient idenity; correct site/side marked and visible; agreement on the procedure to be done; correct patient positioning; an accurate procedure consent form, relevant images and results correctly labeled and displayed; any safety precautions based on clinical history and/or medication use have been addressed.: Supporting Documentation: Indications: Pain and therapeutic Procedure Details: Site: Right Greater Trochanteric Bursa Prep: patient was prepped and draped in usual sterile fashion Patient position: Sidelying Needle Size: 22 G Ultrasound guidance: No Approach: Lateral Medications: 80 mg methylPREDNISolone acetate 80 mg/mL; 4 mL lidocaine 20 mg/mL (2 %) Patient tolerance: Patient tolerated the procedure well with no immediate complications Glenny COFFEY IN CLINIC/BEDSIDE ORD ERABLES Final Result * XR Hip Right 2 or 3 Views (11/07/2024 2:41 PM RAISED PRINTER) Anatomical Region Laterality Modality Lower Extremities, Hip, Pelvis Right D igital Radiography Narrative 11/07/2024 3:07 PM RAISED PRINTER Radiographs taken of the right hip today reveal moderate degenerative changes with subchondral sclerosis, osteophyte formation, and diminished joint space. Glenny COFFEY IMG XR PROCEDURES Fin al Result * COLONOSCOPY (05/02/2023 8:30 AM CDT) Anatomical Region Laterality Modality Other Narrative Procedure Note Toy Hein MD - 05/02/2023 8:30 AM CDT [facility] Patient Name: Yaw Felix Procedure Date: 05/02/2023 8:30 AM Date of : 1955 Admit Type: Outpatient Age: 67 Gender: Male Attending MD: Toy Hein M.D. Room: ON LICENSE OF [facility] ENDOSCOPY ROOM 1 Note Status: Finalized Patient Profile: This is a 67 year old male. History of colonpolyps. No family history of colon cancer per Procedure: Colonoscopy Indications: High risk colon cancer surveillance: Personalhistory of colonic polyps, Last colonoscopy: July2017 Referring MD: Moses Griffith M.D. Providers: Toy Hein M.D. Impression: - One 16 mm polyp in the proximal ascending colon, removed with a cold snare. Resected andretrieved. - One 5 mm polyp in the descending colon, removedwith a cold snare. Resected and retrieved. - Mild diverticulosis in the sigmoid colon. - The rectum is normal. Recommendation: - Await pathology results. - Repeat colonoscopy in 3 years for screeningpurposes. Medicines: Monitored Anesthesia Care Complications: No immediate complications. Estimated Blood Loss: Estimated blood loss: none. Procedure: Pre-Anesthesia Assessment: - Prior to the procedure, a History and Physicalwas performed, and patient medications and allergieswere reviewed. The patient's tolerance of previous anesthesia was also reviewed. The risks andbenefits of the procedure and the sedation options and risks were discussed with the patient. All questions were answered, and informed consent was obtained. Prior Anticoagulants: The patient has taken noanticoagulant or antiplatelet agents. ASA Grade Assessment: III -A patient with severe systemic disease. Afterreviewing the risks and benefits, the patient was deemed in satisfactory condition to undergo the procedure. The benefits, risks and alternatives of theprocedure and sedation were discussed and informed consentwas obtained. All questions were answered. Please referto the signed informed consent document in the medical record. The bowel preparation used was Miralax via split dose instruction. The bowel preparation usedwas bisacodyl tablets via split dose instruction. The scope was passed under direct vision. The Pediatric Colonoscope PCF-H190L [id number] was introducedthrough the anus and advanced to the the cecum, identifiedby appendiceal orifice and ileocecal valve. Thequality of the bowel preparation was excellent. Bowel prepwas administered using a split dose. Findings: The perianal and digital rectal examinations were normal. The cecum appeared normal. A 16 mm polyp was found in the proximal ascending colon. The polypwas semi-pedunculated. The polyp was removed with a cold snare. Resection and retrieval were complete. The transverse colon appeared normal. A 5 mm polyp was found in the descending colon. The polyp wassessile. The polyp was removed with a cold snare. Resection and retrieval were complete. A few small-mouthed diverticula were found in the sigmoid colon. The rectum appeared normal. Electronically signed by Toy Hein M.D. Toy Hein M.D. 05/02/2023 9:28:54 AM Number of Addenda: 0 Note Initiated On: 05/02/2023 8:30 AM Procedure Code(s): --- Professional --- 31416, Colonoscopy, flexible; with removal of tumor(s), polyp(s), or other lesion(s) by snare technique Diagnosis Code(s): --- Professional --- Z86.010, Personal history of colonic polyps D12.2, Benign neoplasm of ascending colon D12.4, Benign neoplasm of descending colon K57.30, Diverticulosis of large intestine without perforation orabscess without bleeding CPT copyright 2020 [employer]. All rights reserved. The codes documented in this report are preliminary and upon steel erecting pusher reviewmay be revised to meet current compliance requirements. Recognized by the [employer] for promoting quality in endoscopy Toy Hein MD ENDOSCOPY PROCEDURES Final Result from Last 3 Months or Most Recently Relevant to Health Maintenance [place] [facility] [place] [facility] [employer] [facility] [address] [place] [address] Advance Directives For more information, please contact: [phone] * Full Code (Latest Code Status on File) Date Activated Date Inactivated Comments 07/30/2024 10:05 AM 08/02/2024 3:01 PM * Full Code Date Activated Date Inactivated Comments 05/02/2023 8:11 AM 05/02/2023 2:12 PM * Full Code Date Activated Date Inactivated Comments 05/02/2023 8:11 AM 05/02/2023 8:11 AM Care Teams Garage Mechanic Relationship Specialty Start Date End Date Moses Griffith MD [address] [place] [address] PCP - General 08/02/09 Mona Fregoso DO [address] [place] [address] Consulting Physician Otolaryngology 08/16/20
--- OUTSIDE RECORDS SUMMARY | 2025-01-27 07:34 | XMS_ITS | Clinical Summary ---
Author Organization [facility] Address [address] [place] [address] Care Team Providers Care Space Systems Operations Craftsman Name Role Phone Gladis, Moses Kevin RODAS Primary Care Provider [phone] Mona Fregoso DO Unavailable [phone] Allergies Active Allergy Reactions Criticality Noted Date [...] (1,000 mg total) by mouth daily Active uhsxz-2-ztu-epa- dpa-fish oil 1,050-1,200 mg capsule Take 2 [...] moore for possible ablatrion rate controlled in [facility] johnathon/ rhythm control with flecainide . [...] 09/28/2023 Assessment & Plan (09/28/2023 11:14 AM GRADES 7 AND 8 VISITING TEACHER): Patient presents with facial rash consistent with shingles, located on R upper brow and forehead area with swelling to right eye. Patient reports he has seen the pheresis nurse and shingles is not in eye. Notes that he goes back to eye doctor on 10/18. Plan: Depo-medrol 80mg IM in office today Valtrex 1 gram tid x 10 days Prednisone 20mg daily for 5 days Allergic drug rash due to narcotic 09/28/2023 Assessment & Plan (09/28/2023 11:33 AM GRADES 7 AND 8 VISITING TEACHER): Patient notes a generalized itchy rash. Says [...] Nasal saline spray (Simply saline, Little Remedies, [place], [place]) 2 second sprays or 2 squeezes into [...] daily Assessment & Plan (11/01/2020 4:12 PM GRADES 7 AND 8 VISITING TEACHER): Sinus Rinse followed by Flonase 2 sprays into each nostril while looking down over the sink, do not sniff in or blow nose after use for at least 30 minutes daily Blood allergy testing - call with results Call for follow up if nasal congestion increases Nasal polyposis 07/29/2020 Overview (07/29/2020): Added automatically from request for surgery [id number] Assessment & Plan (10/11/2020 4:17 PM GRADES 7 AND 8 VISITING TEACHER): Cefdinir with a meal Medrol dose pack [...] (07/29/2020): Added automatically from request for surgery [id number] Chronic maxillary sinusitis 05/13/2020 Assessment & Plan (12/20/2022 10:15 AM GRADES 7 AND 8 VISITING TEACHER): Sinus Rinse Flonase 1 spray and Astelin [...] daily Assessment & Plan (11/01/2020 4:12 PM GRADES 7 AND 8 VISITING TEACHER): 08/26/2020 PROCEDURE PERFORMED: Endoscopic bilateral Total Ethmoidectomies [...] increases Assessment & Plan (10/11/2020 4:17 PM GRADES 7 AND 8 VISITING TEACHER): Cefdinir with a meal Medrol dose pack [...] Atrial fibrillation Adiposity 03/28/2014 Overview (02/16/2017): Obesity Encounters Date Type Department Care Team Description 01/14/2025 10:56 AM GRADES 7 AND 8 VISITING TEACHER Anesthesia Event [facility] Operating Room [address] [place] [address] Lauren Topete MD Okafor, Emenike Adolphus Jr., MD 01/14/2025 10:05 AM GRADES 7 AND 8 VISITING TEACHER - 01/14/2025 11:05 AM GRADES 7 AND 8 VISITING TEACHER Surgery [facility] Operating Room [address] [place] [address] Fei Ramirez MD URONAV GUIDED PROSTATE TRANSRECTAL ULTRASOUND FUSION GUIDED PROSTATE BIOPSY 01/14/2025 8:25 AM GRADES 7 AND 8 VISITING TEACHER - 01/14/2025 1:25 PM GRADES 7 AND 8 VISITING TEACHER Hospital Encounter [facility] Operating Room [address] [place] [address] Fei Ramirez MD Elevated PSA Discharge Disposition: Discharge to home or self care 12/03/2024 1:00 PM GRADES 7 AND 8 VISITING TEACHER Therapy [facility] [place] [address] Deandre Scott, PT Right knee pain, unspecified chronicity 12/03/2024 Plan of Care Documentation [facility] [place] [address] 12/02/2024 11:30 AM GRADES 7 AND 8 VISITING TEACHER - 12/02/2024 11:59 PM GRADES 7 AND 8 VISITING TEACHER Hospital Encounter [facility] [address] [place] [address] Elevated PSA Discharge Disposition: Discharge to home or self care 11/20/2024 11:00 AM GRADES 7 AND 8 VISITING TEACHER Office Visit [facility] Medical [facility] Orthopedics and Sports Medicine [address] [place] [address] [address] [place] [address] Juan Pablo Grijalva MD Right knee pain, unspecified chronicity (Primary Dx); Knee stiffness, right; Hip abductor tendinitis, right 11/20/2024 7:51 AM GRADES 7 AND 8 VISITING TEACHER - 11/20/2024 11:59 PM GRADES 7 AND 8 VISITING TEACHER Hospital Encounter [facility] Orthopedics and Sports Medicine [address] [place] [address] [address] [place] [address] Discharge Disposition: Discharge to home or self care 11/07/2024 2:45 PM GRADES 7 AND 8 VISITING TEACHER Office Visit [facility] Orthopedics and Sports Medicine [address] [place] [address] [address] [place] [address] Glenny Johnson PA Trochanteric bursitis of right hip (Primary Dx) 11/07/2024 7:41 AM GRADES 7 AND 8 VISITING TEACHER - 11/07/2024 11:59 PM GRADES 7 AND 8 VISITING TEACHER Hospital Encounter [facility] Orthopedics and Sports Medicine [address] [place] [address] [address] [place] [address] Discharge Disposition: Discharge to home or self care 10/30/2024 Community Orders [facility] EpicCare Link Fei Ramirez MD Elevated PSA (Primary Dx) from Last 3 Months Immunizations Immunization Administration Dates Next Due DTP 07/22/2007 Influenza, Quadrivalent, Spl it, Intramuscular 08/10/2016 Influenza, Split 07/28/2013,07/22/2012 Influenza, Unspecified 09/09/2024(Deferr ed: Patient Refused),09/03/2023(Deferred: Patient Refused),08/12/2016 Florian (J&J) SARS-CoV-2 Vaccination 01/17/2021 Tdap 04/16/2024 Surgical History Surgery Date Site/Laterality Comments NASAL SEPTOPLASTY W/ TURBINOPLASTY Reduction of turbinates and septoplasty early to late ROTATOR CUFF REPAIR Bilateral TOTAL KNEE ARTHROPLASTY Bilateral JOINT REPLACEMENT COLONOSCOPY 07/13/2017 - 08/11/2017 CATARACT EXTRACTION Bilateral ABLATION 12/18/2024 cardiac CARDIAC CATHETERIZATION and conversion. no stents Medical History Medical History Date Comments Obesity Hypertension Hypercholesteremia Hiatal hernia Sleep apnea Arrhythmia afib OAB (overactive bladder) BPH (benign prostatic hyperplasia) Subdural hematoma (HCC) Herpes Family History Medical History Relation Name Comments Arthritis Other Cancer Other Hypertension Other Relation Name Status Comments Other Social History Tobacco Use Types Packs/Day Years Used Date Smoking Tobacco: Former Cigarettes Smokeless Tobacco: Never Tobacco Cessation:Counseling Given: Not Answered Alcohol Use Standard Drinks/Week Comments Not Currently 0 (1 standard drink = 0.6 oz pur e alcohol) [employer] Answer Date Recorded In the past 12 months has [employer], gas, oil, or water [employer]! threatened to shut off services in your [...] 08/01/2024 How often do you attend chur or roman catholic services? Never 08/01/2024 Do you belong to any clubs o r organizations such as baptism groups, unions, fraternal or athletic groups, or [...] any time in the past 12 m [facility], were you homeless or living in a alf (including now)? No 08/01/2024 Personal Safety Answer Date Recorded Have you ever been in or are you currently in a harmful physical or emotional relationship or is someone making you feel afraid or unsafe? Denies 01/14/2025 Sex and Gender Information Value Date Recorded Sex Assigned at Not on file Legal Sex Male 1:06 AM GRADES 7 AND 8 VISITING TEACHER Gender Identity Not on file Sexual Orientation Not on file Obstetrics History Last Filed Vital Signs Vital Sign Reading Time Taken Comments Blood Pressure 126/83 01/14/2025 12:45 PM GRADES 7 AND 8 VISITING TEACHER Pulse 48 01/14/2025 12:45 PM GRADES 7 AND 8 VISITING TEACHER Temperature 36.1 C (96.9 F) 01/14/2025 12:45 PM GRADES 7 AND 8 VISITING TEACHER Respiratory Rate 15 01/14/2025 12:4 5 PM GRADES 7 AND 8 VISITING TEACHER Oxygen Saturation 100% 01/14/2025 12: 45 PM GRADES 7 AND 8 VISITING TEACHER Inhaled Oxygen Concentration - - Weight 117.9 kg (259 lb 14.8 oz) 01/14/2025 8:43 AM GRADES 7 AND 8 VISITING TEACHER Height 180.3 cm (5' 11 ) 01/14/2025 8:43 AM GRADES 7 AND 8 VISITING TEACHER Body Mass Index 36.25 01/14/2025 8:43 AM GRADES 7 AND 8 VISITING TEACHER Plan of Treatment Health Maintenance Due Date Last Done Comments Hepatitis C Screening 1955 Hepatitis B Screening 1974 Pneumococcal vaccine 65+ (1 of 2 - PCV) 1975 Abdominal Aortic Aneurysm (AAA) Screen 2021 Covid-19 Vaccine (3 - season) 2024 10/17/2021, 01/17/2021 Zoster Vaccine (2 of 2) 02/04/2025 12/10/2024 Influenza Vaccine (#1) 2025 6, 08/10/2016, 07/28/2013, Additional history exists Postponed from 07/13/2024 (Patient declined, but will receive in the future) Depression Screening 09/09/2025 09/09/2024, 08/30/20 23 Well Visit 65+ 09/09/2025 09/09/2024, 08/12, 08/28/2022, Additional history exists Fall Risk Assessment 12/24/2025 12/24/2024, 09/09/2024, 08/02/2024, Additional history exists Prostate Cancer Screening-PSA 12/02/2026 12/02/2024, 10/17/2024, 02/20/2024, Additional history exists Colon Cancer Screening-Colonoscopy 05/02/2033 05/02/2023, 07/19/2017 DTaP/Tdap/Td Vaccine (3 - Td or Tdap) 04/16/2034 04/16/2024, 07/22/2007 Colon Cancer Screening-CT Colonography Discontinued 05/02/2023, 07/19/2017 Colon Cancer Screening-DNA Stool Discontinued 05/02/2023, 07/19/2017 Colon Cancer Screening-FIT Discontinued 05/02/2023, Colon Cancer Screening-Sigmoidoscopy Discontinued 05/02/2023, 07/19/2017 Medical Devices Implanted Type Area Herbicide Service Sales Representative Device Identifier Shelf Expiration Date Model / Serial / Lot Intersect Ent [id number] Propel 4mm 16mm Steroid Release Zip Tie 370 Mcg Mini Implant - [id number] Implanted:Qty: 1 on 08/26/2020 by Mona Fregoso DO at [facility] Left: Sinus Intersect Ent [id number] 04/01/2021 [id number] / / [id number] Intersect Ent [id number] Propel 4mm 16mm Steroid Release Zip Tie 370 Mcg Mini Implant - [id number] Implanted:Qty: 1 on 08/26/2020 by Mona Fregoso DO at [facility] Right: Sinus Intersect Ent [id number] 04/01/2021 [id number] / / [id number] Procedures Procedure Name Priority Date/Time Associated Diagnosis Comments SURGICAL PATHOLOGY Routine 01/14/2025 1: 30 PM GRADES 7 AND 8 VISITING TEACHER Elevated PSA URONAV GUIDED PROSTATE BIOPSY 01/14/2025 10:56 AM GRADES 7 AND 8 VISITING TEACHER Elevated PSA Special Needs [facility] CONF# [id number]< MRI PELVIS PROSTATE W WO CONTRAST Schedule Routine, Read Routine (OP Routine) 12/02/2024 1:20 PM GRADES 7 AND 8 VISITING TEACHER Elevated PSA LIPID PANEL Routine 12/02/2024 8:00 AM GRADES 7 AND 8 VISITING TEACHER Routine physical examination Hypertension, unspecified type PSA SCREEN Routine 12/02/2024 8:00 AM GRADES 7 AND 8 VISITING TEACHER Prostate cancer screening COMPREHENSIVE METABOLIC PANEL Routine 12/02/2024 8:00 AM GRADES 7 AND 8 VISITING TEACHER Routine physical examination Hypertension, unspecified type CBC WITH AUTO DIFFERENTIAL Routine 12/02/2024 8:00 AM GRADES 7 AND 8 VISITING TEACHER Routine physical examination Hypertension, unspecified type XR KNEE RIGHT 3 VIEWS Schedule Routine, Read Routine (OP Routine) 11/20/2024 10:32 AM GRADES 7 AND 8 VISITING TEACHER Right knee pain, unspecified chronicity ID ARTHROCENTESIS ASPIR&/INJ MAJOR JT/BURSA W/O US Routine 11/07/2024 2:45 PM GRADES 7 AND 8 VISITING TEACHER Trochanteric bursitis of right hip XR HIP RIGHT 2 OR 3 VIEWS Schedule Routine, Read Routine (OP Routine) 11/07/2024 2:41 PM GRADES 7 AND 8 VISITING TEACHER Trochanteric bursitis of right hip COLONOSCOPY 05/02/2023 8:30 AM CDT from Last 3 Months or Most Recently Relevant to Health Maintenance Results * Surgical pathology (01/14/2025 1:30 PM GRADES 7 AND 8 VISITING TEACHER) Tissue (Prostate, Needle Biopsy) 01/14/2025 10:48 AM GRADES 7 AND 8 VISITING TEACHER Tissue (Prostate, Needle Biopsy) 01/14/2025 10:48 AM GRADES 7 AND 8 VISITING TEACHER Tissue (Prostate, Needle Biopsy) 01/14/2025 10:48 AM GRADES 7 AND 8 VISITING TEACHER Tissue (Prostate, Needle Biopsy) 01/14/2025 10:48 AM GRADES 7 AND 8 VISITING TEACHER Tissue (Prostate, Needle Biopsy) 01/14/2025 10:48 AM GRADES 7 AND 8 VISITING TEACHER Tissue (Prostate, Needle Biopsy) 01/14/2025 10:48 AM GRADES 7 AND 8 VISITING TEACHER Tissue (Prostate, Needle Biopsy) 01/14/2025 10:48 AM GRADES 7 AND 8 VISITING TEACHER Tissue (Prostate, Needle Biopsy) 01/14/2025 10:48 AM GRADES 7 AND 8 VISITING TEACHER Tissue (Prostate, Needle Biopsy) 01/14/2025 10:48 AM GRADES 7 AND 8 VISITING TEACHER Tissue (Prostate, Needle Biopsy) 01/14/2025 10:48 AM GRADES 7 AND 8 VISITING TEACHER Tissue (Prostate, Needle Biopsy) 01/14/2025 10:48 AM GRADES 7 AND 8 VISITING TEACHER Tissue (Prostate, Needle Biopsy) 01/14/2025 10:48 AM GRADES 7 AND 8 VISITING TEACHER Tissue (Prostate, Needle Biopsy) 01/14/2025 10:51 AM GRADES 7 AND 8 VISITING TEACHER Tissue (Prostate, Needle Biopsy) 01/14/2025 10:51 AM GRADES 7 AND 8 VISITING TEACHER Narrative PATHOLOGY [facility] - 01/16/2025 1:16 PM GRADES 7 AND 8 VISITING TEACHER EPIC results best viewed via link to PDF [facility] Department of Pathology [address] [place] [address] Note to Patients: This report may contain [...] the details. Final Report Patient Name: YAW FELIX Address: [address] [place] [address] [place] [address] Gender: M : 1955 (Age: 69) Service: Surgery Location: [facility] Hospital #: [id number] Patient Type: [facility] Taken: 01/14/2025 Received: 01/14/2025 Accessioned: 01/14/2025 Reported: 01/16/2025 Physician(s):Fei Caraballo MD Diagnosis: M. 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 T.A. Joy Cerrato., P.A./Steph Pinto, M.D. REPORT IMAGES AND SCANNED DOCUMENTS, IF INCLUDED, ONLY VIEWABLE IN PDF VERSION OF REPORT The performance characteristics of some immunohistochemical stains, fluorescence in-situ hybridization tests and immunophenotyping by flow cytometry cited in this report (if any) were determined by the Surgical Pathology Department at [facility] as part of an ongoing quality control lab tech program and in compliance with federally mandated [...] characteristics determined by the Surgical Pathology Department [facility]. It has not been cleared or approved by the U. S. Food and Drug Administration. Note for decalcified specimens: This assay has not been validated on decalcified tissues. Results should be interpreted with caution given the possibility of false negativity on decalcified specimens [facility] Danie Ramirez MD LAB PATHOLOGY ORDERABLES Final Result PATHOLOGY [facility] [address] [place] [address] * MRI PELVIS PROSTATE W WO CONTRAST (12/02/2024 1:20 PM GRADES 7 AND 8 VISITING TEACHER) Anatomical Region Laterality Modality Body N/A Magnetic Resonan ce 12/02/2024 2:09 PM GRADES 7 AND 8 VISITING TEACHER Impressions 12/02/2024 2:52 PM GRADES 7 AND 8 VISITING TEACHER 1. Lesion in the right anterior transition [...] Angel Ricardo M.D. Narrative 12/02/2024 2:52 PM GRADES 7 AND 8 VISITING TEACHER EXAMINATION: MAGNETIC RESONANCE IMAGING OF THE PELVIS [...] Electronically signed by: Miguel Angel Ricardo M.D. Fei Caraballo MD IMG MRI PROCEDURES Final Resul t * (ABNORMAL) PSA screen (12/02/2024 8:00 AM GRADES 7 AND 8 VISITING TEACHER) PSA 6.37(H) < OR = 4.00 ng/mL [facility] Comment: The total PSA value from this assay system is standardized against the WHO standard. The test result will be approximately 20% lower when compared to the equimolar-standardized total PSA ([place]). Comparison of serial PSA results should be interpreted with this fact in mind. This test was performed using the Siemens chemiluminescent method. Values obtained from different assay methods cannot be used interchangeably. PSA levels, regardless of value, should not be interpreted as absolute evidence of the presence or absence of disease. Blood 12/02/2024 8:00 AM GRADES 7 AND 8 VISITING TEACHER 12/02/2024 8:00 AM GRADES 7 AND 8 VISITING TEACHER Narrative [facility] - 12/03/2024 3:15 AM GRADES 7 AND 8 VISITING TEACHER FASTING:YES FASTING: YES Moses Griffith MD LAB BLOOD ORDERABLES Final Result [facility] [address] [place] [address] * (ABNORMAL) CBC with auto differential (12/02/2024 8:00 AM GRADES 7 AND 8 VISITING TEACHER) WBC 6.7 3.8 - 10.8 Thousand/u L [...] [facility] Blood 12/02/2024 8:00 AM GRADES 7 AND 8 VISITING TEACHER 12/02/2024 8:00 AM GRADES 7 AND 8 VISITING TEACHER Narrative [facility] - 12/03/2024 3:15 AM GRADES 7 AND 8 VISITING TEACHER FASTING:YES FASTING: YES Moses Griffith MD LAB BLOOD ORDERABLES Final Result [facility] [address] [place] [address] * (ABNORMAL) Lipid panel (12/02/2024 8:00 AM GRADES 7 AND 8 VISITING TEACHER) Pathologist [facility] Cholesterol 247(H) <200 mg/dL [facility] [...] factors. LDL-C is now calculated using the Cristian-Noble calculation, which is a validated novel method providing better accuracy than the Friedewald equation in the estimation of LDL-C. Cristian SS et al. NITISH. 2013;310(19): 1622-7696 (http://education.Ad Hoc Labs/faq/KEC633) Chol/HDL ratio 5.6(H) <5.0 (calc) [facility] Non-HDL, (LDL+VLDL) 203(H) <130 mg/dL (calc) [facility] Comment: For patients with diabetes plus 1 major ASCVD risk factor, treating to a non-HDL-C goal of <100 mg/dL (LDL-C of <70 mg/dL) is considered a therapeutic option. Blood 12/02/2024 8:00 AM GRADES 7 AND 8 VISITING TEACHER 12/02/2024 8:00 AM GRADES 7 AND 8 VISITING TEACHER Narrative [facility] - 12/03/2024 3:15 AM GRADES 7 AND 8 VISITING TEACHER FASTING:YES FASTING: YES us Moses Griffith MD LAB BLOOD ORDERABLES Final Result [facility] [address] [facility] [place] [address] * Comprehensive metabolic panel (12/02/2024 8:00 AM GRADES 7 AND 8 VISITING TEACHER) [facility] Glucose 90 65 - 99 mg/dL [facility] Comment: Fasting reference interval BUN 18 7 - 25 mg/dL [facility] Creatinine 1.01 0.70 - 1.35 mg/dL [facility] eGFR 82 > OR = 60 mL/min/1.7 3m2 [facility] BUN/creat ratio SEE NOTE: (calc) [facility] Comment: Not Reported: [...] [facility] Blood 12/02/2024 8:00 AM GRADES 7 AND 8 VISITING TEACHER 12/02/2024 8:00 AM GRADES 7 AND 8 VISITING TEACHER Narrative [facility] - 12/03/2024 3:15 AM GRADES 7 AND 8 VISITING TEACHER FASTING:YES FASTING: YES Moses Griffith MD LAB BLOOD ORDERABLES Final Result Performing Organization Address City/State/[facility] Co de Phone Number [facility] [address] [place] [address] * XR Knee Right 3 Views (11/20/2024 10:32 AM GRADES 7 AND 8 VISITING TEACHER) Anatomical Region Laterality Modality Lower Extremities, Knee Right Digital Radiography Narrative 12/05/2024 10:26 AM GRADES 7 AND 8 VISITING TEACHER Three component, Press-Fit, cruciate retaining, total knee arthroplasty in appropriate position with no gross abnormalities and no evidence of loosening. Juan Pablo Grijalva MD IMG XR PROCEDURES Final Result * ID ARTHROCENTESIS ASPIR&/INJ MAJOR JT/BURSA W/O US (11/07/2024 2:45 PM GRADES 7 AND 8 VISITING TEACHER) Narrative Juan Pablo Grijalva MD - 11/07/2024 2:45 PM GRADES 7 AND 8 VISITING TEACHER Glenny Johnson PA 11/07/2024 3:18 PM Greater [...] 2 or 3 Views (11/07/2024 2:41 PM GRADES 7 AND 8 VISITING TEACHER) Anatomical Region Laterality Modality Lower Extremities, Hip, Pelvis Right D igital Radiography Narrative 11/07/2024 3:07 PM GRADES 7 AND 8 VISITING TEACHER Radiographs taken of the right hip today reveal moderate degenerative changes with subchondral sclerosis, osteophyte formation, and diminished joint space. Glenny COFFEY IMG XR PROCEDURES Fin al Result * COLONOSCOPY (05/02/2023 8:30 AM CDT) Anatomical Region Laterality Modality Other Narrative Procedure Note Toy Hein MD - 05/02/2023 8:30 AM CDT Digestive [facility] Patient Name: Yaw Felix Procedure Date: 05/02/2023 8:30 AM Date of : 1955 Admit Type: Outpatient Age: 67 Gender: Male Attending MD: Toy Hein M.D. Room: [facility] ENDOSCOPY ROOM 1 Note Status: Finalized Patient [...] under direct vision. The Pediatric Colonoscope PCF-H190L [id number] was introducedthrough the anus and advanced to [...] 8:30 AM Procedure Code(s): --- Professional --- 00000, Colonoscopy, flexible; with removal of tumor(s), polyp(s), or other lesion(s) by snare technique Diagnosis Code(s): --- Professional --- Z86.010, Personal history of colonic polyps D12.2, Benign neoplasm of ascending colon D12.4, Benign neoplasm of descending colon K57.30, Diverticulosis of large intestine without perforation orabscess without bleeding CPT copyright 2020 [employer]. All rights reserved. The codes documented in this report are preliminary and upon joint runner reviewmay be revised to meet current compliance requirements. Recognized by the [place] [employer] for promoting quality in endoscopy Toy Hein MD ENDOSCOPY PROCEDURES Final Result from Last 3 Months or Most Recently Relevant to Health Maintenance Insurance [facility] HMO/PPO Address: [facility] [id number] [place] [phone] [facility] Advance Directives For more information, please contact: [phone] * Full Code (Latest Code Status on File) Date Activated Date Inactivated Comments 07/30/2024 10:05 AM 08/02/2024 3:01 PM * Full Code Date Activated Date Inactivated Comments 05/02/2023 8:11 AM 05/02/2023 2:12 PM * Full Code Date Activated Date Inactivated Comments 05/02/2023 8:11 AM 05/02/2023 8:11 AM Care Teams Space Systems Operations Craftsman Relationship Specialty Start Date End Date Moses Griffith MD [address] [place] [address] PCP - General 08/02/09 Mona Fregoso DO [address] [facility] [address] [place] [address] Consulting Physician Otolaryngology 08/16/20
--- OUTSIDE RECORDS SUMMARY | 2025-01-27 07:35 | XMS_ITS | Patient Health Summary ---
Author Organization [facility] Address [address] [place] [address] Care Team Providers Care Ad Compositor Name Role Phone Moses Griffith MD Primary Care Provider [phone] Note from [facility],non-owned Affiliates and Associated Physician Practices is amultiple site organization consisting of ambulatory clinics and hospital sitesin [place], [place], [place] and [place]. This disclosure is being madepursuant to the Care Everywhere program and may not contain all information available regarding this patient. Last updated 18.[facility] Allergies * Oxycodone(Rash) -Medium Criticality * Penicillins(Unknown) Medications * Be aware that medications may not be up to date on this document. Alwaysverify current medications with the patient. * acetaminophen (TYLENOL) 325 MG tablet(Started 06/20/2021) Take 2 (two) tablets by mouth every 6 hours as needed for Fever or Pain Maximum allowable Acetaminophen amount = 4 Grams (4000 mg) / 24 hours. * ondansetron, disintegrating, (ZOFRAN ODT) 4 MG tablet(Started 07/09/2021) Take 1 (one) tablet by mouth every 6 hours as needed for Nausea/Vomiting Allow tablet to dissolve on the tongue Active Problems Problem Noted Date Diagnosed Date Subdural hematoma 07/05/2021 SDH (subdural hematoma) 06/16/2021 Hypertension 03/28/2014 Social History Tobacco Use Types Packs/Day Years Used Date Smoking Tobacco: Former Cigarettes Smokeless Tobacco: Never Tobacco Cessation:Counseling Given: No Alcohol Use Standard Drinks/Week Comments Yes 0 (1 standard drink = 0.6 oz pur e alcohol) socially Sex and Gender Information Value Date Recorded Sex Assigned at Not on file Gender Identity Not on file Sexual Orientation Not on file Last Filed Vital Signs Vital Sign Reading Time Taken Comments Blood Pressure 128/87 10/03/2022 11:54 AM CORE MAN Pulse 79 10/03/2022 11:54 AM CORE MAN Temperature 36.9 C (98.5 F) 10/03/2022 11:54 AM CORE MAN Respiratory Rate 18 10/03/2022 11:5 4 AM CORE MAN Oxygen Saturation 98% 10/03/2022 11: 54 AM CORE MAN Inhaled Oxygen Concentration 40% 03/2021 12:00 PM CDT Weight 122.1 kg (269 lb 3.2 oz) 022 11:54 AM CORE MAN Height 182.9 cm (6') 10/03/2022 11:54 AM CORE MAN Body Mass Index 36.51 10/03/2022 11:54 AM CORE MAN Medical Devices Implanted Type Area Power Generation Equipment Repairer Device Identifier Shelf Expiration Date Model / Serial / Lot Sys Embl Onx18 Dmth Slfxd Syr 1.5ml 1ml Implanted:Qty: 1 on 07/08/2021 at [facility] Right: Arterial [employer] 10/12/2023 [id number] / / [id number] Procedures * CT HEAD WO CONTRAST(Performed 10/03/2022) Performed for SDH (subdural hematoma) (HCC) * CT HEAD WO CONTRAST(Performed 07/19/2021) Performed for Subdural hematoma (HCC) * CT HEAD WO CONTRAST(Performed 07/09/2021) Performed for SDH (subdural hematoma) (HCC) * MAGNESIUM BLOOD(Performed 07/08/2021) * CBC W AUTO DIFFERENTIAL(Performed 07/08/2021) * ARTERIAL LINE NOTE(Performed 07/08/2021) * ENDOTRACHEAL TUBE NOTE(Performed 07/08/2021) * IR EMBOLIZATION TRANSCATH THPY(Performed 07/08/2021) Performed for Subdural hematoma (HCC) * ACT LR - POCT ([facility])(Performed 07/08/2021) * PT-INR SLH(Performed 07/08/2021) * CBC W AUTO DIFFERENTIAL(Performed 07/08/2021) * COMPREHENSIVE METABOLIC PANEL(Performed 07/08/2021) * TYPE + SCREEN PANEL(Performed 07/08/2021) * CT HEAD WO CONTRAST(Performed 07/05/2021) Performed for SDH (subdural hematoma) (HCC) * CARDIAC EKG ORDER(Performed 06/22/2021) * BASIC METABOLIC PANEL (CALCIUM TOTAL)(Performed 06/20/2021) * CBC W/O DIFFERENTIAL(Performed 06/20/2021) * OT EVAL AND TREAT(Performed 06/19/2021) * CT HEAD WO CONTRAST(Performed 06/19/2021) Performed for SDH (subdural hematoma) (HCC) * CBC W/O DIFFERENTIAL(Performed 06/19/2021) * BASIC METABOLIC PANEL (CALCIUM TOTAL)(Performed 06/19/2021) * CBC W/O DIFFERENTIAL(Performed 06/17/2021) * BASIC METABOLIC PANEL (CALCIUM TOTAL)(Performed 06/17/2021) * HEMOGLOBIN A1C(Performed 06/17/2021) * CT HEAD WO CONTRAST(Performed 06/17/2021) Performed for SDH (subdural hematoma) (HCC) * OT EVAL AND TREAT(Performed 06/17/2021) * CBC W/O DIFFERENTIAL(Performed 06/17/2021) * BASIC METABOLIC PANEL (CALCIUM TOTAL)(Performed 06/17/2021) * ECHO COMPLETE W BUBBLE STUDY(Performed 06/16/2021) Performed for SDH (subdural hematoma) (HCC) * CBC W AUTO DIFFERENTIAL(Performed 06/16/2021) * BASIC METABOLIC PANEL (CALCIUM TOTAL)(Performed 06/16/2021) * TROPONIN I(Performed 06/16/2021) * SARS-COV-2 (COVID-19)+INFLU A+B PCR RAPID(Performed 06/16/2021) Performed for SDH (subdural hematoma) (HCC) * EKG 12-LEAD(Performed 06/16/2021) Performed for SDH (subdural hematoma) (HCC) * BLOOD TYPE VERIFICATION(Performed 06/16/2021) * LIPID PROFILE(Performed 06/16/2021) * TROPONIN I(Performed 06/16/2021) * CBC W/O DIFFERENTIAL(Performed 06/16/2021) * BASIC METABOLIC PANEL (CALCIUM TOTAL)(Performed 06/16/2021) * PT EVAL AND TREAT(Performed 06/15/2021) * OT EVAL AND TREAT(Performed 06/15/2021) * TYPE + SCREEN PANEL(Performed 06/15/2021) * TROPONIN I(Performed 06/15/2021) * PT-INR SLH(Performed 06/15/2021) * COMPREHENSIVE METABOLIC PANEL(Performed 06/15/2021) * CBC W AUTO DIFFERENTIAL(Performed 06/15/2021) * CT ANGIO BRAIN NECK STROKE(Performed 06/15/2021) Performed for SDH (subdural hematoma) (HCC) * CT BRAIN STROKE(Performed 06/15/2021) Performed for SDH (subdural hematoma) (HCC) Results * CT HEAD WO CONTRAST (10/03/2022 10:19 AM CORE MAN) Only the most recent of6 resultswithin the time period is included. Anatomical Region Laterality Modality Head Computed Tomogra phy 10/03/2022 10:3 0 AM CORE MAN Impressions 10/05/2022 11:50 AM CORE MAN IMPRESSION: 1.Interval complete resolution of previously seen right-sided subdural hematoma. 2.No new acute intracranial hemorrhage. > Dictated by Garcia Weir M.D. (senior resident care director) ILona MD have personally reviewed and interpreted this examination/study. > Interpreting Provider: Lona Martinez MD on 10/05/2022 11:50 AM Narrative 10/05/2022 11:50 AM CORE MAN PROCEDURE: CT HEAD WO CONTRAST, DATE/TIME OF EXAM: 10/03/2022 10:20 AM, LOCATION [facility] INDICATION: S06.5XAA: SDH (subdural hematoma) COMPARISON: CT head without contrast 07/19/2021. EXAMINATION: CT scan of the head without intravenous contrast TECHNIQUE: CT of the head was performed without contrast according to standard protocol. CT dose reduction technique was used, including Automated Exposure Control. FINDINGS: Redemonstration of postoperative findings of right middle meningeal artery embolization embolization with similar internal curvilinear hyperdensities along the anterior inferior aspect of the right cerebral convexity, grossly unchanged from prior. No acute intra- or extra-axial fluid collections are identified. There has been interval resolution of the previously seen subdural hematoma along the right cerebral convexity. The ventricles are of normal size, shape, and morphology. The basilar cisterns are patent. No mass effect or midline shift is seen. The marrero-white matter differentiation is normal. Periventricular white matter hypoattenuation is indicative of chronic small vessel ischemic disease. There is vascular calcification of the carotid siphons. Pneumatization of the anterior clinoids is again noted The orbits appear normal. There is diffuse paranasal sinus disease. There is complete opacification of the right frontal sinus. Mild mucosal thickening in the right frontal sinus. Polypoid mucosal thickening and near complete ossification of the left maxillary sinus. Polypoid mucosal thickening is also noted in the right maxillary sinus. Opacification of the anterior ethmoid air cells. Mild mucosal thickening in the remaining paranasal sinuses. The mastoid air cells are grossly clear. No soft tissue abnormality is identified. Procedure Note Lona Martinez MD - 10/05/2022 PROCEDURE: CT HEAD WO CONTRAST, DATE/TIME OF EXAM: 10/03/2022 10:20AM, LOCATION [facility] INDICATION: S06.5XAA: SDH (subdural hematoma) COMPARISON: CT head without contrast 07/19/2021. EXAMINATION: CT scan of the head without intravenous contrast TECHNIQUE: CT of the head was performed without contrast according to standard protocol. CT dose reduction technique was used, including Automated Exposure Control. FINDINGS: Redemonstration of postoperative findings of right middle meningealartery embolization embolization with similar internal curvilinearhyperdensities along the anterior inferior aspect of the right cerebral convexity,grossly unchanged from prior. No acute intra- or extra-axial fluid collections are identified. Therehas been interval resolution of the previously seen subdural hematoma alongthe right cerebral convexity. The ventricles are of normal size, shape, and morphology. The basilar cisterns are patent. No mass effect or midline shift is seen. The marrero-white matter differentiation is normal. Periventricular white matter hypoattenuation is indicative of chronicsmall vessel ischemic disease. There is vascular calcification of the carotid siphons. Pneumatization of the anterior clinoids is again noted Theorbits appear normal. There is diffuse paranasal sinus disease. There iscomplete opacification of the right frontal sinus. Mild mucosal thickening in the right frontal sinus. Polypoid mucosal thickening and near complete ossification of the left maxillary sinus. Polypoid mucosal thickening is also noted in the right maxillary sinus. Opacification of the anterior ethmoid air cells. Mild mucosal thickening in the remaining paranasal sinuses. The mastoid air cells are grossly clear. No soft tissue abnormality is identified. IMPRESSION: 1.Interval complete resolution of previously seen right-sided subdural hematoma. 2.No new acute intracranial hemorrhage. > Dictated by Garcia Weir M.D. (senior resident care director) ILona MD have personally reviewed and interpretedthis examination/study. > Interpreting Provider: Lona Martinez MD on 10/05/2022 11:50AM Royer Parekh MD CT ORDERABLES * (ABNORMAL) CBC W AUTO DIFFERENTIAL (07/08/2021 11:48 PM CDT) Only the most recent of4 resultswithin the time period is included. WBC 11.7(H) 3.5 - 10.5 10 3/uL 07/09/2021 12:22 AM [facility] Comment:Confirmed by repeat analysis. RBC 5.27 4.30 - 5.70 10 6/uL 07/09/2021 12:22 AM [facility] Hemoglobin 14.7 12.0 - 17.6 g/dL 07/09/2021 12:22 AM [facility] Hematocrit 43.7 35.2 - 51.7 % 07/09/2021 12:22 AM [facility] MCV 82.9 80.7 - 98.3 fL 07/09/2021 12:22 AM [facility] MCH 27.9 26.7 - 34.0 pg 07/09/2021 12:22 AM [facility] MCHC 33.6 30.8 - 35.9 g/dL 07/09/2021 12:22 AM [facility] Platelet Count 224 150 - 400 10 3/uL 07/09/2021 12:22 AM [facility] RDW-SD 37.9 36.0 - 50.0 fL 07/09/2021 12:22 AM [facility] RDW-CV 12.6 11.2 - 14.8 % 07/09/2021 12:22 AM [facility] MPV 9.3(L) 9.4 - 12.9 fL 07/09/2021 12:22 AM [facility] nRBC Absolute 0.00 0 10 3/uL 07/09/2021 12:22 AM [facility] nRBC Auto 0.0 0 /100 WBC 07/09/2021 12:22 AM [facility] Neutrophils % 79.9(H) 35.0 - 70.0 % 07/09/2021 12:22 AM [facility] Lymphocytes % 10.5(L) 20.0 - 43.0 % 07/09/2021 12:22 AM [facility] Monocytes % 8.7 5.0 - 13.0 % 07/09/2021 12:22 AM [facility] Eosinophils % 0.0 0.0 - 6.0 % 07/09/2021 12:22 AM [facility] Basophil % 0.3 0.0 - 2.0 % 07/09/2021 12:22 AM [facility] Neutrophils Absolute 9.3(H) 1.6 - 7.0 10 3/uL 07/09/2021 12:22 AM [facility] Lymphocyte Absolute 1.2 1.1 - 3.9 10 3/uL 07/09/2021 12:22 AM [facility] Monocytes Absolute 1.01 0.26 - 1.07 10 3/uL 07/09/2021 12:22 AM [facility] Eosinophils Absolute 0.00 0.00 - 0.47 10 3/uL 07/09/2021 12:22 AM [facility] Basophils Absolute 0.04 0.00 - 0.08 10 3/uL 07/09/2021 12:22 AM [facility] Immature Granulocytes % 0.6 0.0 - 1.0 % 07/09/2021 12:22 AM [facility] Immature Granulocytes Absolute 0.07 07/09/2021 12:22 AM [facility] Blood BLOOD SPECIMEN / Unknown Venipuncture / Unknown 07/08/2021 11:48 PM CDT 07/08/2021 11:52 PM CDT Royer Parekh MD LAB - HEMATOLOGY ORD ERABLES Performing Organization Address City/[facility]/ZIP Co de Phone Number [address] [address], [place] [phone] * MAGNESIUM BLOOD (07/08/2021 11:48 PM CDT) Magnesium 2.3 1.6 - 2.6 mg/dL 07/09/2021 12:16 AM CDT [facility] Blood BLOOD SPECIMEN / Unknown Venipuncture / Unknown 07/08/2021 11:48 PM CDT 07/08/2021 11:52 PM CDT Royer Parekh MD LAB - CHEMISTRY ORDE RABMADHURI Performing Organization Address [facility]/ZIP Co de Phone Number [address] [address], [facility] [phone] * ARTERIAL LINE PERFORMABLE (07/08/2021 9:34 AM CDT) Narrative Dg Avila Anes Asst - 07/08/2021 9:34 AM CDT Dg Avila Anes Asst 07/08/2021 9:36 AM Arterial Line Placement Procedure Note Patient Location: OR. Procedure: Arterial Line ([id number]). Procedure Section Indications: continuous blood pressure monitoring. Consent: a time out was performed for patient safety, risks of hemorrhage, hematoma, infection and adverse drug reactions were discussed, informed consent was obtained for the procedure, including sedation and informed consent was obtained for the procedure. Patient Sedated? No Skin Prep: Chloraprep. Location: left radial. Site Identification: palpation. Sterile Technique: small sterile fenestrated drape, sterile gloves, mask and cap. Local Anesthetic Used? No Gauge: 20. Seldinger Technique Used? Yes Number of Attempts: 1. Line Secured with: Tegaderm and tape. Procedure Tolerance: tolerated well and performed while patient under general anesthesia. Events: none. Procedure Start Time: 07/08/2021 8:20 AM. Procedure End Time: 07/08/2021 8:26 AM. Procedure Total Time: 6 minutes. Staff Section Anesthesia Provider: Dg Avila Anes Asst, Performed the procedure Alcon Salmon MD GENERAL ANESTHESIA ORDERABLES * ETT LINE PERFORMABLE (07/08/2021 9:32 AM CDT) Narrative Dg Avila Anes Asst - 07/08/2021 9:32 AM CDT Dg Avila Anes Asst 07/08/2021 9:34 AM Endotracheal Tube Placement: Patient Location: OR. Intubation Event Date/Time: 07/08/2021 8:17 AM Procedure: intubation ([id number]). Procedure Section: Sedation: under general anesthesia. Indications for Airway Management: anesthesia Procedure pretreatments used? No Induction: standard IV Patient Position: supine Mask Ventilation: easy with oral airway. Blade Type: Matt Blade Size: 4 Laryngoscopy View: grade 2 (partial cords) Intubation Adjuncts: stylet and cricoid pressure Tube: endotracheal tube Placement: oral Tube type: cuff - inflated Tube Size (MM): 7 Depth of Insertion (CM): 23 Measured From: teeth Cuff Inflated With: air Number of Attempts: 1. Placement Verified By: direct visualization, bilateral breath sounds, chest auscultation and CO2 monitor CXR Findings: ETT in proper place. Tube secured with: ETT selby and adhesive tape. Dentition unchanged? Yes Difficult Airway? No. Procedure Start Time: 07/08/2021 8:17 AM. Procedure End Time: 07/08/2021 8:17 AM. Procedure Total Time: 0 minutes. Staff Section Anesthesia Provider: Dg Avila Anes Asst, Performed the procedure Alcon Salmon MD GENERAL ANESTHESIA ORDERABLES * IR EMBOLIZATION TRANSCATH THPY (07/08/2021 9:27 AM CDT) Anatomical Region Laterality Modality X-Ray Angiograph y 07/08/2021 3:25 PM CDT Impressions 07/13/2021 9:31 AM CDT Impression: Successful embolization of right middle meningeal artery Dr. ROYER Fischer Dr have personally reviewed and interpreted this examination/study. This report was electronically signed by ORYER PAREKH Dr on 07/13/2021 9:31 AM . Narrative 07/13/2021 9:31 AM CDT Procedure: Cerebral angiogram and right middle meningeal artery embolization 07/08/2021 Comparison study: None History: The patient a 65 years -year-old Male who presented with worsening acute on chronic right subdural hematoma.He is here for cerebral angiogram and right middle meningeal artery embolization. Overlay Operator: oJng Parekh Lamination Operator(s): Gage Jean Vessels: Ultrasound Guided Vessel Access Right external carotid artery angiogram: Cervical and Cerebral Microcatheterization of intracranial right middle meningeal artery and right external carotid artery artery Embolization of right middle meningeal artery with Tam 18 liquid embolic. Angiography through the existing catheter Right femoral artery angiogram Anesthesia: General Anesthesia Procedural detail: The risks, benefits, and alternatives to procedure were discussed in detail with the patient and his . These included but were not limited to the risk of vessel rupture, brain hemorrhage, , stroke, blood loss, vessel injury, renal injury, and contrast allergy. Patient provided written consent and was brought to the biplane angiography suite where he underwent prep and drape procedures. Limited ultrasound of the common femoral artery demonstrated a patent vessel. The take off of the profunda and other arteries were identified. A marrero scale image was documented. The right common femoral artery was accessed using a micropuncture needle. The needle entry was documented. Following a series of exchanges, a 6 Vincentian 30 cm Brite tip sheath was placed in the right femoral artery and a 6 Vincentian MPC Envoy guide catheter was guided into the distal end of the left common carotid artery. A cervical and cerebral angiogram were obtained. Through this catheter an Azle microcatheter and Synchro 10 microwire were coaxially inserted and used to catheterize the right middle meningeal artery. Embolization was then performed with Tam 18 liquid embolic agent. Angiography through the existing catheter was performed. The right femoral artery angiogram was obtained through the sheath. All catheters and sheaths were removed from the arterial system. Hemostasis was achieved using a 6 Vincentian Angio-Seal closure device. Hemostasis was immediate at the end of the closure procedure. The right dorsalis pedis pulse was palpable at the end of the closure procedure. The patient tolerated the procedure without immediate complications. He was returned to the recovery area and hemodynamically stable condition neurologically unchanged. The estimated blood loss was less than 10 mL. Findings: There was good arterial, capillary, and venous opacification of all angiographic runs. Normal branches of the right external carotid artery with prominent STA. The right middle meningeal artery was identified and successfully embolized with Mobile 18. The left femoral artery angiogram reveals a puncture site above the femoral bifurcation. Procedure Note Royer Parekh MD - 07/13/2021 Procedure: Cerebral angiogram and right middle meningeal artery embolization 07/08/2021 Comparison study: None History: The patient a 65 years -year-old Male who presented with worsening acute on chronic right subdural hematoma.He is here forcerebral angiogram and right middle meningeal artery embolization. Overlay Operator: Jong Parekh Lamination Operator(s): Gage Jean Vessels: Ultrasound Guided Vessel Access Right external carotid artery angiogram: Cervical and Cerebral Microcatheterization of intracranial right middle meningeal artery and right external carotid artery artery Embolization of right middle meningeal artery with Mobile 18 liquidembolic. Angiography through the existing catheter Right femoral artery angiogram Anesthesia: General Anesthesia Procedural detail: The risks, benefits, and alternatives to procedurewere discussed in detail with the patient and his . These included butwere not limited to the risk of vessel rupture, brain hemorrhage, , stroke, blood loss, vessel injury, renal injury, and contrast allergy. Patient provided written consent and was brought to the biplane angiography suite where he underwent prep and drape procedures. Limited ultrasound of the common femoral artery demonstrated a patent vessel.The take off of the profunda and other arteries were identified. A grayscale image was documented. The right common femoral artery was accessed usinga micropuncture needle. The needle entry was documented. Following aseries of exchanges, a 6 Vincentian 30 cm Brite tip sheath was placed in the right femoral artery and a 6 Vincentian MPC Envoy guide catheter was guided into the distal end of the left common carotid artery. A cervical andcerebral angiogram were obtained. Through this catheter an Azle microcatheterand Synchro 10 microwire were coaxially inserted and used to catheterize the right middle meningeal artery. Embolization was then performed with Tam 18 liquid embolic agent. Angiography through the existing catheter was performed. The right femoral artery angiogram was obtained through the sheath. All catheters and sheaths were removed from the arterial system. Hemostasis was achieved using a 6 Vincentian Angio-Seal closure device. Hemostasis was immediate at the end of the closure procedure. The right dorsalis pedis pulse was palpable at the end of the closure procedure. The patient tolerated the procedure without immediate complications. He was returned to the recovery area and hemodynamically stable condition neurologically unchanged. The estimated blood loss was less than 10 mL. Findings: There was good arterial, capillary, and venous opacification of all angiographic runs. Normal branches of the right external carotid artery with prominent STA. The right middle meningeal artery was identified and successfully embolized with Tam 18. The left femoral artery angiogram reveals a puncture site above the femoral bifurcation. Impression: Successful embolization of right middle meningeal artery IDr. ROYER PAREKH Dr have personally reviewed and interpreted this examination/study. This report was electronically signed by ROYER PAREKH Dr on 07/13/2021 9:31 AM . Royer Parekh MD IR ORDERABLES * ACT LR - POCT ([facility]) (07/08/2021 9:21 AM CDT) Pathologist [facility] ACT LR 242 See result comments sec 07/08/2021 9:27 AM CDT [facility] Blood BLOOD SPECIMEN / Unknown 07/08/2021 9:21 AM CDT 07/08/2021 9:26 AM CDT Narrative [facility] - 07/08/2021 9:27 AM CDT ACT-LR Therapeutics ranges are: Cardiac labor relations or personnel negotiator = 200-300 seconds Sheath pull = ACT less than 170 seconds EPS lab = 200-240 seconds Sheath pull = ACT less than 140 seconds Radiology : CT/Angio lab = 200-300 seconds Sheath pull = ACT less than 200 seconds Expected range of normal volunteers: ACT-LR = 113-149 seconds Expected range of a Non-heparin patients: ACT-LR = 89-169 seconds From established ranges from the company manual Royer Parekh MD LAB - COAGULATION OR DERABLES [facility] [address] [place] [address], [facility] [phone] * PT-INR [facility] (07/08/2021 7:32 AM CDT) Only the most recent of2 resultswithin the time period is included. PT 13.7 12.1 - 14.8 Seconds 07/08/2021 8:09 AM [facility] INR 1.1 See Comment 07/08/2021 8:09 AM [facility] Comment:The suggested therap eutic range for standard coumadin (warfarin) therapy is an INR of 2.0-3.0. For high-risk patients (Mechanical Mitral Valve Prosthesis, etc.), the suggested prophylactic therapeutic range is an INR of 2.5-3.5. Blood BLOOD SPECIMEN / Unknown Venipuncture / Unknown 07/08/2021 7:32 AM CDT 07/08/2021 7:40 AM CDT James Jean MD LAB - COAGULATION OR DERABLES Performing Organization Address [facility]/State/[facility] Co de Phone Number [address] [address] [phone] * COMPREHENSIVE METABOLIC PANEL (07/08/2021 7:32 AM CDT) Only the most recent of2 resultswithin the time period is included. BUN 18 7 - 26 mg/dL 07/08/2021 8:12 AM [facility] Creatinine 0.87 0.71 - 1.16 mg/dL 07/08/2021 8:12 AM [facility] Sodium 139 136 - 145 mmol/L 07/08/2021 8:12 AM [facility] Potassium 3.9 3.5 - 4.5 mmol/L 07/08/2021 8:12 AM [facility] Chloride 105 98 - 107 mmol/L 07/08/2021 8:12 AM [facility] CO2 24 22 - 29 mmol/L 07/08/2021 8:12 AM [facility] Glucose 98 70 - 115 mg/dL 07/08/2021 8:12 AM [facility] Calcium 9.2 8.4 - 10.2 mg/dL 07/08/2021 8:12 AM [facility] Protein Total 6.6 6.0 - 8.3 g/dL 07/08/2021 8:12 AM [facility] Albumin 3.9 3.4 - 5.0 g/dL 07/08/2021 8:12 AM [facility] Bilirubin Total 0.8 0.2 - 1.2 mg/dL 07/08/2021 8:12 AM [facility] Alkaline Phosphatase 63 40 - 150 U/L 07/08/2021 8:12 AM [facility] ALT 18 5 - 55 U/L 07/08/2021 8:12 AM [facility] AST 17 5 - 34 U/L 07/08/2021 8:12 AM [facility] Anion Gap 14 8 - 18 07/08/2021 8:12 AM [facility] BUN/Creatinine Ratio 21 7 - 23 07/08/2021 8:12 AM [facility] Osmolality Calculated 290 270 - 300 mOsm/kg 07/08/2021 8:12 AM [facility] Albumin/Globulin Ratio 1.4 1.1 - 2.3 07/08/2021 8:12 AM [facility] eGFR by CKD-EPI >90 >=90 mL/min/1.7 3 m2 07/08/2021 8:12 AM [facility] Blood BLOOD SPECIMEN / Unknown Venipuncture / Unknown 07/08/2021 7:32 AM CDT 07/08/2021 7:46 AM CDT James Jean MD LAB - CHEMISTRY [facility]IBEL JEFF[facility] ([place], [place]) Organization Address City/State/[facility] Co de Phone Number [facility] [address] [place] [phone], [facility] [phone] * TYPE + SCREEN PANEL (07/08/2021 7:30 AM CDT) Only the most recent of2 resultswithin the time period is included. Antibody Screen NEG 8:38 AM T [facility] ABO Rh O POS 07/08/2021 8:38 AM T [facility] Blood Bank BLOOD SPECIMEN / Unknown Venipuncture / Unknown 07/08/2021 7:30 AM CDT 07/08/2021 7:49 AM CDT James Jean MD LAB - BLOOD BANK ORD ERABLES [facility] [address] [place] [address], [facility] [phone] * CARDIAC EKG ORDER (06/22/2021 7:26 AM CDT) Narrative 06/22/2021 7:26 AM CDT Ordered by an unspecified provider. Scanned Document CARDIAC SERVICES ORD ERABLES * (ABNORMAL) CBC W/O DIFFERENTIAL (06/20/2021 4:23 AM CDT) Only the most recent of5 resultswithin the time period is included. WBC 7.6 3.5 - 10.5 10 3/uL 06/20/2021 4:40 AM [facility] RBC 6.21(H) 4.30 - 5.70 10 6/uL 06/20/2021 4:40 AM [facility] Hemoglobin 17.4 12.0 - 17.6 g/dL 06/20/2021 4:40 AM [facility] Hematocrit 52.2(H) 35.2 - 51.7 % 06/20/2021 4:40 AM [facility] MCV 84.1 80.7 - 98.3 fL 06/20/2021 4:40 AM [facility] MCH 28.0 26.7 - 34.0 pg 06/20/2021 4:40 AM [facility] MCHC 33.3 30.8 - 35.9 g/dL 06/20/2021 4:40 AM [facility] Platelet Count 256 150 - 400 10 3/uL 06/20/2021 4:40 AM [facility] RDW-SD 39.0 36.0 - 50.0 fL 06/20/2021 4:40 AM [facility] RDW-CV 13.0 11.2 - 14.8 % 06/20/2021 4:40 AM [facility] MPV 9.2(L) 9.4 - 12.9 fL 06/20/2021 4:40 AM [facility] nRBC Absolute 0.00 0 10 3/uL 06/20/2021 4:40 AM [facility] nRBC Auto 0.0 0 /100 WBC 06/20/2021 4:40 AM [facility] Blood BLOOD SPECIMEN / Unknown Venipuncture / Unknown 06/20/2021 4:23 AM CDT 06/20/2021 4:32 AM CDT Wes Aquino MD LAB - HEMATOLOGY ORD ERABLES [facility] [address] [place] [phone], [facility] [phone] * (ABNORMAL) BASIC METABOLIC PANEL (CALCIUM TOTAL) (06/20/2021 4:23 AM T) Only the most recent of6 resultswithin the time period is included. BUN 18 7 - 26 mg/dL 06/20/2021 5:04 AM [facility] Creatinine 0.99 0.71 - 1.16 mg/dL 06/20/2021 5:04 AM [facility] Sodium 140 136 - 145 mmol/L 06/20/2021 5:04 AM [facility] Potassium 4.5 3.5 - 4.5 mmol/L 06/20/2021 5:04 AM [facility] Chloride 105 98 - 107 mmol/L 06/20/2021 5:04 AM [facility] CO2 25 22 - 29 mmol/L 06/20/2021 5:04 AM [facility] Glucose 101 70 - 115 mg/dL 06/20/2021 5:04 AM [facility] Calcium 9.2 8.4 - 10.2 mg/dL 06/20/2021 5:04 AM [facility] Anion Gap 15 8 - 18 06/20/2021 5:04 AM [facility] BUN/Creatinine Ratio 18 7 - 23 06/20/2021 5:04 AM [facility] Osmolality Calculated 292 270 - 300 mOsm/kg 06/20/2021 5:04 AM T [facility] eGFR by CKD-EPI 80(L) >=90 mL/min/1.7 3 m2 06/20/2021 5:04 AM T [facility] Blood BLOOD SPECIMEN / Unknown Venipuncture / Unknown 06/20/2021 4:23 AM CDT 06/20/2021 4:32 AM CDT Wes Aquino MD LAB - CHEMISTRY MARIBEL JEFFERSON [facility] [address] [place] [address], [facility] [phone] * HEMOGLOBIN A1C (06/17/2021 11:53 PM CDT) Hemoglobin A1c 5.1 4.4 - 6.3 % 06/18/2021 9:51 AM T [facility] Estimated Average Glucose 100 mg/dL 06/18/2021 9:51 AM [facility] Comment: HbA1c Interpretation: Treatment target values recommended by ADA and other clinical organizations should be used to evaluate metabolic control in patients. Treatment Target Values: Normal : < 5.7% Pre-diabetes: 5.7-6.4% Diabetes: Equal to or greater than 6.5% Reference: [place] [employer] Standards of Care in Diabetes -2014 In patients 70 years and older consider HbA1c target range of 7.0-7.5% Reference: Diabetes Mellitus in Older People: Position Statement on behalf of the International Association of Gerontology and Geriatrics (IAGG), the Diabetes Working Democrat for Older People (EDWPOP), and the International Task Force of Experts in Diabetes. Carlos Torres, et al. J [place] [employer]. 2012 Test results diagnostic of diabetes should be repeated for confirmation. The Sebia Capillary 2 assay for the measurement of HbA1c is a National Glycohemoglobin Standardization Program (NGSP)certified method. Blood BLOOD SPECIMEN / Unknown Venipuncture / Unknown 06/17/2021 11:53 PM CDT 06/17/2021 11:57 PM CDT Amos Blankenship MD LAB - CHEMISTRY MARIBEL JEFFERSON [facility] [address] [place] [phone], [facility] [phone] * ECHO COMPLETE W BUBBLE STUDY (06/16/2021 12:04 PM CDT) Anatomical Region Laterality Modality Chest Echo 06/16/2021 11:1 8 AM CDT Narrative Procedure Note Elijah George MD - 06/16/2021 Amos Blankenship MD ECHOCARDIOGRAPHY RAD IANT * TROPONIN I (06/16/2021 3:53 AM CDT) Only the most recent of3 resultswithin the time period is included. Troponin I <0.010 <0.032 ng/mL 06/16/2021 4:47 AM CDT [facility] Blood BLOOD SPECIMEN / Unknown Venipuncture / Unknown 06/16/2021 3:53 AM CDT 06/16/2021 3:59 AM CDT Amos Blankenship MD LAB - CHEMISTRY MARIBEL JEFFERSON [address] [address], [facility] [phone] * SARS-COV-2 (COVID-19)+INFLU A+B PCR RAPID (06/16/2021 2:13 AM CDT) COVID-19 PCR Not detected Not detected 06/16/20 2:47 AM CDT [facility] Influenza A Rapid CATIE Not Detected Not Detected 06/16/2021 2:47 AM CDT [facility] Influenza B CATIE Rapid Not Detected Not Detected 06/16/2021 2:47 AM CDT [facility] Microbiology SPECIMEN FROM NASOPHARYNGEAL STRUCTURE / Unknown Collection / Unknown 06/16/2021 2:13 AM CDT 06/16/2021 2:17 AM CDT Narrative [facility] - 06/16/2021 2:47 AM CDT Influenza assay performed by Nucleic Acid Amplification. Results do not exclude the possibility of a mixed viral infection. NOTE: Detecting and identifying specific viral nucleic acids from individuals exhibiting signs and symptoms of respiratory infection aids in the diagnosis of respiratory infection, if used in conjunction with other clinical and laboratory findings. The results of this test should not be used as the sole basis for diagnosis, treatment, or patient management decisions. This nucleic acid amplification assay performance was validated by [facility]. This test has been authorized by the Food and Drug administration (FDA)under an Emergency Use Authorization (EUA). This test has been validated in accordance with the FDA's guidance document Policy for Diagnostic Testing in Laboratories Certified to perform High Complexity Testing under CLIA prior to Emergency Use Authorization for Coronavirus Disease-2019 during the Public Health Emergency issued on January 10, 2020. FDA independent review of this validation is pending. This test is only authorized for the duration of time the declaration that circumstances exist justifying the authorization of emergency use of in vitro diagnostic tests for detection of SARS-CoV-2 virus and/or diagnosis of COVID-19 infection under section 564(b)(1) of the Act, 21 U.S.C 360bbb-3 (b)(1), unless the authorization is terminated or revoked sooner. Fact Sheets for this EUA assay are available upon request. Elijah Alamo MD LAB - MICROBIOLOGY O RDERABLES [facility] [address] [place] [address], [facility] [phone] * EKG 12-LEAD (06/16/2021 12:57 AM CDT) Ventricular Rate 83 BPM [facility] Atrial Rate 83 BPM [facility] P-R Interval 140 ms [facility] QRS Duration ms 86 ms [facility] Q-T Interval ms 378 ms [facility] MUSE QTC Calculation (Bezet) 444 ms [facility] MUSE Calculated P [place] 53 degrees [facility] MUSE Calculated R [place] 39 degrees [facility] MUSE Calculated T Berea 11 degrees [facility] MUSE Interpretation EKG NORMAL SINUS RHYTHM NORMAL ECG NO PREVIOUS ECGS AVAILABLE Confirmed by Regino Griffith ([id number]) on 06/16/2021 7:20:02 AM [facility] MUSE 06/16/2021 12:5 7 AM CDT 06/16/2021 7:20 AM CDT Amos Blankenship MD ECG ORDERABLES [facility] * BLOOD TYPE VERIFICATION (06/16/2021 12:52 AM CDT) ABO Rh O POS 06/16/2021 1:3 0 AM CDT [facility] Blood Bank BLOOD SPECIMEN / Unknown Venipuncture / Unknown 06/16/2021 12:52 AM CDT 06/16/2021 1:01 AM CDT Aoms Blankenship MD LAB - BLOOD BANK ORD ERABLES Performing Organization Address City/[facility]/ZIP Co de Phone Number [facility] [address] [place] [address], [facility] [phone] * (ABNORMAL) LIPID PROFILE (06/16/2021 12:52 AM CDT) Cholesterol Total 196 <200 mg/dL 06/16/2021 1:30 AM CDT [facility] HDL 39(L) >40 mg/dL 06/16/2021 1:30 AM T [facility] Comment: ATP III Classification of HDL Cholesterol: <40 mg/dL: Considered a major risk factor. >60 mg/dL: Considered a negative risk factor. LDL Calculated 128(H) <100 mg/dL 06/16/2021 1:30 AM T [facility] Comment: ATP III Classification of LDL Cholesterol: <100 mg/dL: Optimal 100 - 129 mg/dL: Near Optimal/Above Optimal 130 - 159 mg/dL: Borderline High 160 - 189 mg/dL: High >190 mg/dL: Very High Triglycerides 145 <150 mg/dL 06/16/2021 1:30 AM T [facility] Comment: ATP III Classification of Triglycerides: <150 mg/dL: Normal 150 - 199 mg/dL: Borderline High 200 - 400 mg/dL: High >500 mg/dL: Very High Blood BLOOD SPECIMEN / Unknown Venipuncture / Unknown 06/16/2021 12:52 AM CDT 06/16/2021 1:02 AM CDT Amos Blankenship MD LAB - CHEMISTRY MARIBEL JEFFERSON [facility] ([place], [place]) Organization Address City/State/ZIP Co de Phone Number [place] [phone] [place] [address], [facility] [phone] * CT ANGIO BRAIN NECK STROKE (06/15/2021 11:25 PM CDT) Anatomical Region Laterality Modality Head Computed Tomogra phy 06/16/2021 2:24 PM CDT Impressions 06/16/2021 2:45 PM CDT IMPRESSION: No significant abnormality of the intracranial or cervical vessels. This report was electronically signed by CATHERINE FERRIS on 06/16/2021 2:45 PM . Narrative 06/16/2021 2:45 PM CDT EXAMINATION: CT angiography of the brain CT angiography of the neck HISTORY: Code Stroke TECHNIQUE: CT angiography of the head and neck was obtained after the uneventful administration of 75 mL Isovue 370 intravenous contrast. Three dimensional postprocessing was performed by the technologist and sent to the workstation for review. NASCET criteria was utilized for evaluation of carotid stenosis. COMPARISON: No prior study is available for comparison at the time of this dictation. FINDINGS: The common and internal carotid arteries are patent bilaterally without hemodynamically significant stenosis. The anterior and middle cerebral arteries are within normal limits. There is a normal anterior communicating artery. The vertebral arteries are normal in intracranial and extracranial course. The basilar artery is normal. The posterior cerebral arteries are within normal limits. The intracranial findings are reported separately. Procedure Note Catherine Ferris MD - 06/16/2021 EXAMINATION: CT angiography of the brain CT angiography of the neck HISTORY: Code Stroke TECHNIQUE: CT angiography of the head and neck was obtained after the uneventful administration of 75 mL Isovue 370 intravenous contrast.Three dimensional postprocessing was performed by the technologist and sent to the workstation for review. NASCET criteria was utilized for evaluationof carotid stenosis. COMPARISON: No prior study is available for comparison at the time ofthis dictation. FINDINGS: The common and internal carotid arteries are patent bilaterally without hemodynamically significant stenosis. The anterior and middle cerebral arteries are within normal limits. There is a normal anterior communicating artery. The vertebral arteries are normal in intracranial and extracranialcourse. The basilar artery is normal. The posterior cerebral arteries arewithin normal limits. The intracranial findings are reported separately. IMPRESSION: No significant abnormality of the intracranial or cervical vessels. This report was electronically signed by CATHERINE FERRIS on 06/16/2021 2:[address]. Amos Blankenship MD CT ORDERABLES * CT BRAIN - Stroke (06/15/2021 11:15 PM CDT) Anatomical Region Laterality Modality Head Computed Tomogra phy 06/15/2021 11:2 3 PM CDT Impressions 06/16/2021 11:24 AM CDT IMPRESSION: 1.Moderate volume subdural fluid collection overlying the right cerebral hemisphere measuring up to maximum thickness of 1.5 cm. Small volume hyperdense material is seen layering posteriorly in this collection, most compatible with acute on subacute subdural hemorrhage. 2.Extensive mass effect with 1.5 cm midline shift to the left, early right uncal herniation and compression of the lateral and third ventricles. Entrapment of the left occipital horn. Transforaminal CSF flow. 3.Diffuse effacement of bilateral cerebral sulci which may be due to a combination of subacute isodense subarachnoid hemorrhage or cerebral edema with compression of the sulci. Preliminary results were discussed with Dr. Everett by Dr. Gaitan on 06/15/2021 at 11:53 PM. Dictated by Anali Gaitan MD (senior resident care director). I, Dr. CATHERINE FERRIS have personally reviewed and interpreted this examination/study. This report was electronically signed by CATHERINE FERRIS on 06/16/2021 11:24 AM . Narrative 06/16/2021 11:24 AM CDT EXAMINATION: Computed tomography (CT) of the head without contrast HISTORY: Code Stroke transfer from outside hospital for known intracranial hemorrhage, [facility] x2 weeks. Decreased mental status. TECHNIQUE: CT of the head was performed without contrast according to standard protocol. COMPARISON: No prior study is available for comparison at the time of this dictation.. FINDINGS: There is a moderate volume predominantly hypodense/isodense subdural fluid collection overlying the right cerebral hemisphere measuring up to maximum thickness of 1.5 cm. Small volume hyperdense material is seen layering posteriorly in this collection. This is most compatible with acute on subacute subdural hemorrhage. There is significant mass effect on bilateral lateral ventricles, greater on the right. The relative enlargement of the occipital horn of left lateral ventricle represents trapped ventricle. There is mild transependymal CSF flow. The third ventricle is nearly completely effaced. The fourth ventricle is not dilated. There is 1.5 cm right to left midline shift (series 3 image 15). Early right herniation is noted mass effect on the brainstem. The basal cisterns are partially effaced. The marrero-white matter differentiation is preserved. There is diffuse effacement of bilateral cerebral sulci which may be due to a combination of subacute isodense subarachnoid hemorrhage or cerebral edema with compression of the sulci. There is moderate mucosal thickening of bilateral frontal sinuses, bilateral ethmoid air cells and bilateral maxillary sinuses. Bilateral sphenoid sinuses are clear. The tympanomastoid cavities are aerated. The orbits are unremarkable. There is no skull fracture. Procedure Note Catherine Ferris MD - 06/16/2021 EXAMINATION: Computed tomography (CT) of the head without contrast HISTORY: Code Stroke transfer from outside hospital for knownintracranial hemorrhage, U[facility] x2 weeks. Decreased mental status. TECHNIQUE: CT of the head was performed without contrast according to standard protocol. COMPARISON: No prior study is available for comparison at the time ofthis dictation.. FINDINGS: There is a moderate volume predominantly hypodense/isodense subduralfluid collection overlying the right cerebral hemisphere measuring up tomaximum thickness of 1.5 cm. Small volume hyperdense material is seen layering posteriorly in this collection. This is most compatible with acute on subacute subdural hemorrhage. There is significant mass effect on bilateral lateral ventricles,greater on the right. The relative enlargement of the occipital horn of left lateral ventricle represents trapped ventricle. There is mild transependymal CSF flow. The third ventricle is nearly completelyeffaced. The fourth ventricle is not dilated. There is 1.5 cm right to leftmidline shift (series 3 image 15). Early right herniation is noted mass effecton the brainstem. The basal cisterns are partially effaced. The marrero-white matter differentiation is preserved. There is diffuse effacement of bilateral cerebral sulci which may be due to a combination of subacute isodense subarachnoid hemorrhage orcerebral edema with compression of the sulci. There is moderate mucosal thickening of bilateral frontal sinuses, bilateral ethmoid air cells and bilateral maxillary sinuses. Bilateral sphenoid sinuses are clear. The tympanomastoid cavities are aerated. The orbits are unremarkable. There is no skull fracture. IMPRESSION: 1.Moderate volume subdural fluid collection overlying the right cerebral hemisphere measuring up to maximum thickness of 1.5 cm. Small volume hyperdense material is seen layering posteriorly in this collection,most compatible with acute on subacute subdural hemorrhage. 2.Extensive mass effect with 1.5 cm midline shift to the left, earlyright uncal herniation and compression of the lateral and third ventricles. Entrapment of the left occipital horn. Transforaminal CSF flow. 3.Diffuse effacement of bilateral cerebral sulci which may be due to a combination of subacute isodense subarachnoid hemorrhage or cerebraledema with compression of the sulci. Preliminary results were discussed with Dr. Everett by Dr. Gaitan on 06/15/2021 at 11:53 PM. Dictated by Anali Gaitan MD (senior resident care director). I, Dr. CATHERINE FERRIS have personally reviewed and interpreted this examination/study. This report was electronically signed by CATHERINE FERRIS on 06/16/2021 11:24AM . Amos Blankenship MD CT ORDERABLES Care Teams Ad Compositor Relationship Specialty Start Date End Date Moses Griffith MD [address] [place] [id number] PCP - General Internal Medicine 07/19/21
--- OUTSIDE RECORDS SUMMARY | 2025-01-27 07:35 | XMS_ITS | Clinical Summary ---
Author Organization [facility] Address [address] [place] [address] Care Team Providers Care Ssrs Developer Name Role Phone Moses Griffith MD Primary Care Provider [phone] Source Comments [facility],non-owned Affiliates and Associated Physician Practices is amultiple site organization consisting of ambulatory clinics and hospital sitesin [place], [place], [place] and [place]. This disclosure is being madepursuant to the Care Everywhere program and may not contain all information available regarding this patient. Last updated 18.[facility] Allergies Active Allergy Reactions Criticality Noted Date Comments Oxycodone Rash Medium 07/08/2021 Penicillins Unknown 06/16/2021 Medications * Be aware that medications may not be up to date on this document. Alwaysverify current medications with the patient. Medication Sig Dispensed Refills Start Date End Date Status acetaminophen (TYLENOL) 325 MG tablet Take 2 (two) tablets by mouth every 6 hours as needed for Fever or Pain Maximum allowable Acetaminophen amount = 4 Grams (4000 mg) / 24 hours. 0 06/20/2021 Active Additional Information Patient not taking.Reported on 07/19/2021 ondansetron, disintegrating, (ZOFRAN ODT) 4 MG tablet Take 1 (one) tablet by mouth every 6 hours as needed for Nausea/Vomiting Allow tablet to dissolve on the tongue 56 tablet 07/09/2021 Active Additional Information Patient not taking.Reported on 07/19/2021 Active Problems Problem Noted Date Diagnosed Date Subdural hematoma 07/05/2021 SDH (subdural hematoma) 06/16/2021 Hypertension 03/28/2014 Overview (07/05/2021): Hypertension Family History Medical History Relation Name Comments Cancer - Ovarian Mother Relation Name Status Comments Mother Social History Tobacco Use Types Packs/Day Years [...] Comments Blood Pressure 128/87 10/03/2022 11:54 AM CONTROL SYSTEMS DRAFTING OFFICER Pulse 79 10/03/2022 11:54 AM CONTROL SYSTEMS DRAFTING OFFICER Temperature 36.9 C (98.5 F) 10/03/2022 11:54 AM CONTROL SYSTEMS DRAFTING OFFICER Respiratory Rate 18 10/03/2022 11:5 4 AM CONTROL SYSTEMS DRAFTING OFFICER Oxygen Saturation 98% 10/03/2022 11: 54 AM CONTROL SYSTEMS DRAFTING OFFICER Inhaled Oxygen Concentration 40% 03/2021 12:00 PM CDT Weight 122.1 kg (269 lb 3.2 oz) 022 11:54 AM CONTROL SYSTEMS DRAFTING OFFICER Height 182.9 cm (6') 10/03/2022 11:54 AM CONTROL SYSTEMS DRAFTING OFFICER Body Mass Index 36.51 10/03/2022 11:54 AM CONTROL SYSTEMS DRAFTING OFFICER Plan of Treatment Health Maintenance Due Date Last Done Comments COLOGUARD (AGES 45-75) - COLON CA SCREENING 1956 COLON MONITORING 1956 COLONOSCOPY - COLON CA SCREENING 1956 CT COLONOGRAPHY - COLON CA SCREENING 1955 Colorectal Cancer Screening 1956 FIT - COLON CA SCREENING 1956 FLEX SIG - COLON CA SCREENING 1955 MEDICARE AWV 12 MONTHS 1956 HEPATITIS C SCREENING 12/04/1974 DTAP/TDAP/TD VACCINES (1 - Tdap) 1975 PNEUMOCOCCAL VACCINE 50+ (1 of 1 - PCV) 2006 ZOSTER VACCINE (1 of 2) 2006 AAA SCREENING 2021 SCREENING FOR DIABETES 07/08/2024 , 06/20/2021, 06/19/2021, Additional history exists COVID-19 VACCINE ( season) 2024 01/17/2021 INFLUENZA VACCINE (#1) 2024 6, 07/28/2013, 07/22/2012 DEPRESSION SCREENING 11/12/2024 LIPID TESTING 06/16/2026 06/16/2021 Respiratory Syncytial Virus (RSV) Vaccine Pt: or over 60 yrs (1 - 1-dose 75+ series) 2031 HEPATITIS B VACCINE Aged Out No longe r eligible based on patient's age to complete this topic HIB VACCINE Aged Out No longer eligi ble based on patient's age to complete this topic HPV VACCINE Aged Out No longer eligi ble based on patient's age to complete this topic MENINGOCOCCAL (Group B) VACCINE SHARED DECISION-MAKING Aged Out No longer eligible based on patient's age to complete this topic MENINGOCOCCAL GROUPS A/C/Y/W VACCINE Aged Out No longer eligible based on patient's age to complete this topic Medical Devices Implanted Type Area Neonatal Nurse Practitioner Device Identifier Shelf Expiration Date Model / Serial / Lot Sys Embl Onx18 Dmth Slfxd Syr 1.5ml 1ml Implanted:Qty: 1 on 07/08/2021 at [facility] Right: Arterial [employer] 10/12/2023 [id number] / / [id number] Procedures Procedure Name Priority Date/Time Associated Diagnosis Comments COMPREHENSIVE METABOLIC PANEL STAT 07/08/2021 7:32 AM CDT LIPID PROFILE STAT 06/16/2021 12:52 AM CDT from Last 3 Months or Most Recently Relevant to Health Maintenance Results * COMPREHENSIVE METABOLIC PANEL (07/08/2021 7:32 AM CDT) BUN 18 7 - 26 mg/dL 07/08/2021 8:12 AM CDT [facility] Creatinine 0.87 0.71 - 1.16 mg/dL 07/08/2021 8:12 AM CDT [facility] Sodium 139 136 - 145 mmol/L 07/08/2021 8:12 AM [facility] Potassium 3.9 3.5 - 4.5 mmol/L 07/08/2021 8:12 AM [facility] Chloride 105 98 - 107 mmol/L 07/08/2021 8:12 AM [facility] CO2 24 22 - 29 mmol/L 07/08/2021 8:12 AM [facility] Glucose 98 70 - 115 mg/dL 07/08/2021 8:12 AM [facility] Calcium 9.2 8.4 - 10.2 mg/dL 07/08/2021 8:12 AM [facility] Protein Total 6.6 6.0 - 8.3 g/dL 07/08/2021 8:12 AM [facility] Albumin 3.9 3.4 - 5.0 g/dL 07/08/2021 8:12 AM [facility] Bilirubin Total 0.8 0.2 - 1.2 mg/dL 07/08/2021 8:12 AM [facility] Alkaline Phosphatase 63 40 - 150 U/L 07/08/2021 8:12 AM [facility] ALT 18 5 - 55 U/L 07/08/2021 8:12 AM [facility] AST 17 5 - 34 U/L 07/08/2021 8:12 AM [facility] Anion Gap 14 8 - 18 07/08/2021 8:12 AM [facility] BUN/Creatinine Ratio 21 7 - 23 07/08/2021 8:12 AM [facility] Osmolality Calculated 290 270 - 300 mOsm/kg 07/08/2021 8:12 AM [facility] Albumin/Globulin Ratio 1.4 1.1 - 2.3 07/08/2021 8:12 AM [facility] eGFR by CKD-EPI >90 >=90 mL/min/1.7 3 m2 07/08/2021 8:12 AM [facility] Blood BLOOD SPECIMEN / Unknown Venipuncture / Unknown 07/08/2021 7:32 AM T 07/08/2021 7:46 AM CDT James Jean MD LAB - CHEMISTRY [facility] [address] [place] [address], [place] [phone] * (ABNORMAL) LIPID PROFILE (06/16/2021 12:52 AM CDT) Cholesterol Total 196 <200 mg/dL 06/16/2021 1:30 AM CDT [facility] HDL 39(L) >40 mg/dL 06/16/2021 1:30 AM T [facility] Comment: ATP III Classification of HDL Cholesterol: <40 mg/dL: Considered a major risk factor. >60 mg/dL: Considered a negative risk factor. LDL Calculated 128(H) <100 mg/dL 06/16/2021 1:30 AM [facility] Comment: ATP III Classification of LDL Cholesterol: <100 mg/dL: Optimal 100 - 129 mg/dL: Near Optimal/Above Optimal 130 - 159 mg/dL: Borderline High 160 - 189 mg/dL: High >190 mg/dL: Very High Triglycerides 145 <150 mg/dL 06/16/2021 1:30 AM T [facility] Comment: ATP III Classification of Triglycerides: <150 mg/dL: Normal 150 - 199 mg/dL: Borderline High 200 - 400 mg/dL: High >500 mg/dL: Very High Blood BLOOD SPECIMEN / Unknown Venipuncture / Unknown 06/16/2021 12:52 AM CDT 06/16/2021 1:02 AM CDT Amos Blankenship MD LAB - CHEMISTRY [facility] [address] [place] [address], [place] [phone] from Last 3 Months or Most Recently Relevant to Health Maintenance Advance Directives * Full Code (Latest Code Status on File) Date Activated Date Inactivated Comments 07/08/2021 10:24 PM 07/09/2021 4:38 PM * Full Code Date Activated Date Inactivated Comments 06/16/2021 3:41 AM 06/20/2021 1:57 PM * Full Code Date Activated Date Inactivated Comments 06/15/2021 11:42 PM 06/16/2021 3:41 AM Care Teams Ssrs Developer Relationship Specialty Start Date End Date Moses Griffith MD [address] [place] [address] PCP - General Internal Medicine 07/19/21
--- OUTSIDE RECORDS SUMMARY | 2025-01-27 07:35 | XMS_ITS | Encounter Summary ---
Author Organization [facility] Address [address] [place] [address] Phone Care Team Providers Care Jig And Fixture Maker Name Role Phone Moses Griffith MD Primary Care Provider [phone] Mona Fregoso DO Unavailable [phone] Encounter Details Date Type Department Care Team (Late st Contact Info) Description 11/21/2022 Orders Only [facility] [address] [place] [address] Scanning, Provider Social History Tobacco Use Types Packs/Day Years Used Date Smoking Tobacco: Former Smokeless Tobacco: Never Alcohol Use Standard Drinks/Week Comments Not Currently 0 (1 standard drink = 0.6 oz pur e alcohol) Sex and Gender Information Value Date Recorded Sex Assigned at Not on file Legal Sex Male 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 Gender Identity Not on file Sexual Orientation Not on file documented as of this encounter Plan of Treatment Not on file documented as of this encounter Procedures Procedure Name Priority Date/Time Associated Diagnosis Comments SCAN - RADIOLOGY/IMAGING 11/21/2022 documented in this encounter Results * SCAN - RADIOLOGY/IMAGING (11/21/2022) Anatomical Region Laterality Modality Other us Provider Scanning Final Result documented in this encounter Visit Diagnoses Not on filedocumented in this encounter Care Teams Jig And Fixture Maker Relationship Specialty Start Date End Date Moses Griffith MD [address] [place] [address] PCP - General 08/02/09 Mona Fregoso DO [address] [facility] [address] [place] [address] Consulting Physician Otolaryngology 08/16/20 documented as of this encounter
--- OUTSIDE RECORDS SUMMARY | 2025-01-27 07:35 | XMS_ITS | Clinical Summary ---
Author Organization [facility] Address [address] [place] [address] Care Team Providers Care Flask Maker Name Role Phone Moses Griffith MD Primary Care Provider [phone] Allergies Active Allergy Reactions Criticality Noted Date Comments Hydrocodone Hives,Rash Low 04/04/2024 PATIENT STATES HE CAN'T TOLERATE OPIOIDS Oxycodone Hives,Rash Low 04/04/2024 Penicillins Rash Low 03/26/2024 As a child Medications valACYclovir (VALTREX) 500 MG tablet Take 1 tablet (500 mg total) by mouth 3 (three) times daily. Viral infection in right eye Active doxycycline hyclate (VIBRAMYCIN) 100 MG capsule Take 1 capsule (100 mg total) by mouth 2 (two) times daily. For dry eye Active lifitegrast (XIIDRA) 5 % ophthalmic solution Place 1 drop into both eyes 2 (two) times daily. Active Zinc Sulfate (ZINC 15 OR) Take 1 tablet by mouth daily. Active Lysine HCl 500 MG Tab Take 1 tablet by mouth daily. Active traMADol-acetam inophen (ULTRACET) 37.5-325 MG tabletIndicatio ns:Acute Pain < 7 Day Supply Take 1 tablet by mouth every 6 (six) hours as needed for Pain. Indications: Acute Pain < 7 Day Supply 20 tablet 4 Active Active Problems No known active problems Family History Medical History Relation Comments asbestosis Father Cancer Mother ovarian cancer 2 5years ago Heart Mother tachycardia, did ablation, afib Relation Status Comments Father Mother Alive Social History Tobacco Use Types Packs/Day Years Used Date Smoking Tobacco: Former Cigarettes 1 972 - 1969 Smokeless Tobacco: Never Tobacco Cessation:Counseling Given: Not Answered Alcohol Use Standard Drinks/Week Comments Not Currently 0 (1 standard drink = 0.6 oz pur e alcohol) 0-1, very seldom Sex and Gender Information Value Date Recorded Sex Assigned at Not on file Legal Sex Male 3:28 PM CDT Gender Identity Not on file Sexual Orientation Not on file Last Filed Vital Signs Vital Sign Reading Time Taken Comments Blood Pressure 147/76 04/04/2024 3:55 PM CDT Pulse 68 04/04/2024 3:55 PM CDT Temperature 36.4 C (97.6 F) 04/04/2024 3:55 PM CDT Respiratory Rate 18 04/04/2024 3:55 PM CDT Oxygen Saturation 99% 04/04/2024 3:55 PM CDT Inhaled Oxygen Concentration - - Weight 112.6 kg (248 lb 3.8 oz) 04/04/2024 1:00 PM CDT Height 181.6 cm (5' 11.5 ) 03/26/2024 4:00 PM CD T Body Mass Index 34.14 03/26/2024 4:00 PM CDT Plan of Treatment Health Maintenance Due Date Last Done Comments Colorectal Cancer Screening Colonoscopy (10 Years) 1956 Hepatitis C 1974 Zoster Vaccines (1 of 2) 2006 DTaP, Tdap and Td Vaccines (2 - Tdap) 07/22/2017 07/22/2007 Annual Medicare Wellness Visit 2021 Pneumococcal Vaccine: 65+ Years (1 of 1 - PCV) 2021 COVID-19 Vaccine (3 - season) 2024 10/17/2021, 01/17/2021 Influenza Adult (#1) 2024 08/12/2016, 08/10/2016, 07/28/2013, Additional history exists RSV Immunization or 60+ Years (1 - 1-dose 75+ series) 2031 AAA SCREENING Completed 01/30/2022, 01/30/2022 Meningococcal B Vaccine Aged Out No l onger eligible based on patient's age to complete this topic Meningococcal Vaccine Aged Out No arash norah eligible based on patient's age to complete this topic RSV Immunizations Under 20 Months Aged Out No longer eligible based on patient's age to complete this topic Insurance [employer] Care Teams Flask Maker Relationship Specialty Start Date End Date Moses Griffith MD [address] [place] [address] PCP - General INTERNAL MEDICINE 04/01/24
--- OUTSIDE RECORDS SUMMARY | 2025-01-27 07:35 | XMS_ITS | Encounter Summary ---
Author Organization [facility] Address [address] [place] [address] Phone Care Team Providers Care Systems Support Specialist Name Role Phone Moses Griffith MD Primary Care Provider [phone] Mona Fregoso DO Unavailable [phone] Encounter Details Date Type Department Care Team (Late st Contact Info) Description 11/22/2017 Orders Only [facility] [address] [place] [address] Moses Griffith MD [address] [address] Social History Tobacco Use Types Packs/Day Years Used Date Smoking Tobacco: Former Smokeless Tobacco: Never Sex and Gender Information Value Date Recorded Sex Assigned at Not on file Legal Sex Male 1:06 AM CRABBER Gender Identity Not on file Sexual Orientation Not on file documented as of this encounter Plan of Treatment Not on file documented as of this encounter Procedures Procedure Name Priority Date/Time Associated Diagnosis Comments SCAN - LABS 11/22/2017 3:01 PM CRABBER documented in this encounter Results * SCAN - LABS (11/22/2017 3:01 PM CRABBER) Moses Griffith MD Final Resu lt documented in this encounter Visit Diagnoses Not on filedocumented in this encounter Additional Health Concerns Infection Onset Date Last Indicated Resolved Time COVID: Suspected 06/15/2021 06/15/2021 06/15/2021 3:55 PM CDT COVID: Suspected 06/08/2022 06/08/2022 06/09/2022 3:05 AM CDT documented as of this encounter Care Teams Systems Support Specialist Relationship Specialty Start Date End Date Moses Griffith MD [address] [place] [address] PCP - General 08/02/09 Mona Fregoso DO [address] [facility] [address] [place] [address] Consulting Physician Otolaryngology 08/16/20 documented as of this encounter
--- OUTSIDE RECORDS SUMMARY | 2025-01-27 07:35 | XMS_ITS | Clinical Summary ---
Author Organization [facility] Address [address] [place] [address] Phone Care Team Providers Care Marketing And Development Coordinator Name Role Phone Moses Griffith MD Primary Care Provider [phone] Allergies Active Allergy Reactions Criticality Noted Date Comments Penicillins Unknown 08/21/2020 Medications No known medications Active Problems No known active problems Social History Tobacco Use Types Packs/Day Years Used Date Smoking Tobacco: Former Smokeless Tobacco: Never Alcohol Use Standard Drinks/Week Comments Never 0 (1 standard drink = 0.6 oz pur e alcohol) Sex and Gender Information Value Date Recorded Sex Assigned at Not on file Legal Sex Male 11:22 PM CDT Gender Identity Not on file Sexual Orientation Not on file Last Filed Vital Signs Vital Sign Reading Time Taken Comments Blood Pressure 147/81 06/15/2021 10:07 PM CDT Pulse 77 06/15/2021 10:07 PM CDT Temperature 37.1 C (98.7 F) 06/15/2021 5:28 PM CDT Respiratory Rate 21 06/15/2021 10:07 PM CDT Oxygen Saturation 97% 06/15/2021 10:07 PM CDT Inhaled Oxygen Concentration - - Weight 124.7 kg (275 lb) 06/15/2021 5:28 PM CDT Height 180.3 cm (5' 11 ) 06/15/2021 5:28 PM CDT Body Mass Index 38.35 06/15/2021 5:28 PM CDT Plan of Treatment Health Maintenance Due Date Last Done Comments Hepatitis C Virus (HCV) Screening 1955 TdaP Immunization 1955 Colonoscopy 2001 Colorectal Cancer Screening 2001 Cologuard 2006 Immunochemical Fecal Occult Blood 2006 Pneumococcal Immunization (5 0+ years) (1 of 1 - PCV) 2006 Zoster Immunization (1 of 2) 2006 PSA Discussion 2011 Influenza Immunization (#1) 2024 08/10/2016 SARS-COV-2 Immunization ( season) 2024 10/17/2021, 01/17/2021 Respiratory Syncytial Virus (RSV) Immunization (Adult) (1 - 1-dose 75+ series) 2031 DTaP/Tdap/Td Immunization Discontinued 07/22/2007 Hepatitis B Immunization Aged Out No longer eligible based on patient's age to complete this topic Meningococcal Immunization (ACWY) Aged Out No longer eligible based on patient's age to complete this topic Rotavirus Immunization Aged Out No lo nger eligible based on patient's age to complete this topic Insurance [facility] Care Teams Marketing And Development Coordinator Relationship Specialty Start Date End Date Moses Griffith MD [address] [place] [address] PCP - General Infectious Disease 08/21/20
--- OUTSIDE RECORDS SUMMARY | 2025-01-27 07:35 | XMS_ITS | Referral Summary ---
Author Organization [facility] Address [address] [place] [address] Care Team Providers Care Loom Setter Name Role Phone Moses Griffith MD Primary Care Provider [phone] Source Comments [facility],non-owned Affiliates and Associated Physician Practices is amultiple site organization consisting of ambulatory clinics and hospital sitesin [place], [place], [place] and [place]. This disclosure is being madepursuant to the Care Everywhere program and may not contain all information available regarding this patient. Last updated 18.[facility] Allergies Active Allergy Reactions Criticality Noted Date [...] hematoma) 06/16/2021 Hypertension 03/28/2014 Overview (07/05/2021): Hypertension Social History Tobacco Use Types Packs/Day Years [...] Comments Blood Pressure 128/87 10/03/2022 11:54 AM FIELD MARKETING MANAGER Pulse 79 10/03/2022 11:54 AM FIELD MARKETING MANAGER Temperature 36.9 C (98.5 F) 10/03/2022 11:54 AM FIELD MARKETING MANAGER Respiratory Rate 18 10/03/2022 11:5 4 AM FIELD MARKETING MANAGER Oxygen Saturation 98% 10/03/2022 11: 54 AM FIELD MARKETING MANAGER Inhaled Oxygen Concentration 40% 03/2021 12:00 PM CDT Weight 122.1 kg (269 lb 3.2 oz) 022 11:54 AM FIELD MARKETING MANAGER Height 182.9 cm (6') 10/03/2022 11:54 AM FIELD MARKETING MANAGER Body Mass Index 36.51 10/03/2022 11:54 AM FIELD MARKETING MANAGER Functional Status Functional Status Response Date of Assess ment Is person deaf or have serious hearing difficult y? No 07/09/2021 Is person blind or have serious difficulty seein g? No 07/09/2021 Does person have serious dif ficulty walking/climbing stairs? No 07/09/2021 Does person have difficulty dressing/bathing? No 07/09/2021 Does person have difficulty doing errands alone? No 07/09/2021 Cognitive Status Response Date of Assessm ent Does person have difficulty concentrating/remembering/making decisions? No 07/09/2021 Plan of Treatment Not on file Medical Devices Implanted Type Area Respiratory Care Assistant Device Identifier Shelf Expiration Date Model / Serial / Lot Sys Embl Onx18 Dmth Slfxd Syr 1.5ml 1ml Implanted:Qty: 1 on 07/08/2021 at [facility] Right: Arterial [employer] 10/12/2023 [id number] / / [id number] Procedures Procedure Name Priority Date/Time Associated Diagnosis Comments COMPREHENSIVE METABOLIC PANEL STAT 07/08/2021 7:32 AM CDT LIPID PROFILE STAT 06/16/2021 12:52 AM CDT from Last 3 Months or Most Recently Relevant to Health Maintenance Results * COMPREHENSIVE METABOLIC PANEL (07/08/2021 7:32 AM CDT) BUN 18 7 - 26 mg/dL 07/08/2021 8:12 AM [facility] Creatinine 0.87 0.71 - 1.16 mg/dL 07/08/2021 8:12 AM [facility] Sodium 139 136 - 145 mmol/L 07/08/2021 8:12 AM [facility] Potassium 3.9 3.5 - 4.5 mmol/L 07/08/2021 8:12 AM [facility] Chloride 105 98 - 107 mmol/L 07/08/2021 8:12 AM [facility] CO2 24 22 - 29 mmol/L 07/08/2021 8:12 AM [facility] Glucose 98 70 - 115 mg/dL 07/08/2021 8:12 AM [facility] Calcium 9.2 8.4 - 10.2 mg/dL 07/08/2021 8:12 AM [facility] Protein Total 6.6 6.0 - 8.3 g/dL 07/08/2021 8:12 AM [facility] Albumin 3.9 3.4 - 5.0 g/dL 07/08/2021 8:12 AM [facility] Bilirubin Total 0.8 0.2 - 1.2 mg/dL 07/08/2021 8:12 AM [facility] Alkaline Phosphatase 63 40 - 150 U/L 07/08/2021 8:12 AM [facility] ALT 18 5 - 55 U/L 07/08/2021 8:12 AM [facility] AST 17 5 - 34 U/L 07/08/2021 8:12 AM [facility] Anion Gap 14 8 - 18 07/08/2021 8:12 AM [facility] BUN/Creatinine Ratio 21 7 - 23 07/08/2021 8:12 AM [facility] Osmolality Calculated 290 270 - 300 mOsm/kg 07/08/2021 8:12 AM [facility] Albumin/Globulin Ratio 1.4 1.1 - 2.3 07/08/2021 8:12 AM [facility] eGFR by CKD-EPI >90 >=90 mL/min/1.7 3 m2 07/08/2021 8:12 AM [facility] Blood BLOOD SPECIMEN / Unknown Venipuncture / Unknown 07/08/2021 7:32 AM CDT 07/08/2021 7:46 AM T James Jean MD LAB - CHEMISTRY [facility] Organization Address [facility] Co de Phone Number [address] [address] [phone] * (ABNORMAL) LIPID PROFILE (06/16/2021 12:52 AM CDT) Cholesterol Total 196 <200 mg/dL 06/16/2021 1:30 AM [facility] HDL 39(L) >40 mg/dL 06/16/2021 1:30 AM [facility] Comment: ATP III Classification of HDL Cholesterol: <40 mg/dL: Considered a major risk factor. >60 mg/dL: Considered a negative risk factor. LDL Calculated 128(H) <100 mg/dL 06/16/2021 1:30 AM [facility] Comment: ATP III Classification of LDL Cholesterol: <100 mg/dL: Optimal 100 - 129 mg/dL: Near Optimal/Above Optimal 130 - 159 mg/dL: Borderline High 160 - 189 mg/dL: High >190 mg/dL: Very High Triglycerides 145 <150 mg/dL 06/16/2021 1:30 AM [facility] Comment: ATP III Classification of Triglycerides: <150 mg/dL: Normal 150 - 199 mg/dL: Borderline High 200 - 400 mg/dL: High >500 mg/dL: Very High Blood BLOOD SPECIMEN / Unknown Venipuncture / Unknown 06/16/2021 12:52 AM CDT 06/16/2021 1:02 AM CDT Amos Blankenship MD LAB - CHEMISTRY [facility] [address] [place] [address], [facility] [phone] from Last 3 Months or Most Recently Relevant to Health Maintenance Advance Directives * Full Code (Latest Code Status on File) Date Activated Date Inactivated Comments 07/08/2021 10:24 PM 07/09/2021 4:38 PM * Full Code Date Activated Date Inactivated Comments 06/16/2021 3:41 AM 06/20/2021 1:57 PM * Full Code Date Activated Date Inactivated Comments 06/15/2021 11:42 PM 06/16/2021 3:41 AM Care Teams Loom Setter Relationship Specialty Start Date End Date Gladis, Moses Kevin, MD [address] [place] [address] PCP - General Internal Medicine 07/19/21
== END 2025-01-27 07:31 | disposition home or self-care (01) ==
PROVIDERS: PCP Internal Medicine Infectious Disease; Visit Provider Urology
DX: C61 Malignant neoplasm of prostate (principal)
CPT/HCPCS: 78815; A9596